=== PATIENT | female | born 1960 | race Caucasian/White ===

== ENCOUNTER 2018-04-07 16:26 | Emergency (ER) | payer OTHER ==
--- NOTE | 2018-04-07 17:44 | EDPHYS ---
Physician Documentation [facility] Name: Sindy Peng Age: 58 yrs Sex: Female : 1960 Arrival Date: 04/07/2018 Time: 16:30 Bed 10 Private MD: Fernando Burks E ED Physician Carlos Sherman HPI: 04/07 17:47 This 58 yrs old Female presents to ER via Wheelchair with complaints of Foot snw Pain. 17:47 The patient presents with decreased range of motion, pain. The complaints affect the snw right ankle and anterior aspect of right ankle. Context: The problem was sustained at an unknown site, resulted from pt states pain became worse when her knee immobilizer was removed, the patient can partially bear weight, uses a walker. 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 Modifying factors: The symptoms are alleviated by nothing. Treatment prior to arrival includes: medications per Surgeon. Severity of symptoms: At their worst the symptoms were moderate, severe. The patient has experienced similar episodes in the past. Saturday, knee ortho. Historical: - Allergies: 16:58 metoclopramide HCl; hb 16:58 erythromycin base; hb 16:58 PENICILLINS; hb - Immunization history:: Adult Immunizations up to date. - Social history:: Smoking status: Patient/guardian denies using tobacco. - Ebola Screening: : No symptoms or risks identified at this time. ROS: 17:47 Constitutional: Negative for fever, chills, and weight loss, Eyes: Negative for injury, snw pain, redness, and discharge, ENT: Negative for injury, pain, and discharge, Neck: Negative for injury, pain, and swelling, Cardiovascular: Negative for chest pain, palpitations, and edema, Respiratory: Negative for shortness of breath, cough, wheezing, and pleuritic chest pain, Abdomen/GI: Negative for abdominal pain, nausea, vomiting, diarrhea, and constipation, Back: Negative for injury and pain, : Negative for injury, bleeding, discharge, and swelling, Skin: Negative for injury, rash, and discoloration, Neuro: Negative for headache, weakness, numbness, tingling, and seizure. 17:47 MS/extremity: Positive for decreased range of motion, pain, swelling, tenderness, of the right ankle. Exam: 17:44 Constitutional: This is a well developed, well nourished patient who is awake, alert, snw and in no acute distress. Head/Face: Normocephalic, atraumatic. Eyes: Pupils equal round and reactive to light, extra-ocular motions intact. Lids and lashes normal. Conjunctiva and sclera are non-icteric and not injected. Cornea within normal limits. Periorbital areas with no swelling, redness, or edema. ENT: Nares patent. No nasal discharge, no septal abnormalities noted. Tympanic membranes are normal and external auditory canals are clear. Oropharynx with no redness, swelling, or masses, exudates, or evidence of obstruction, uvula midline. Mucous membranes moist. Neck: Trachea midline, no thyromegaly or masses palpated, and no cervical lymphadenopathy. Supple, full range of motion without nuchal rigidity, or vertebral point tenderness. No Meningismus. Chest/axilla: Normal chest wall appearance and motion. Nontender with no deformity. No lesions are appreciated. Cardiovascular: Regular rate and rhythm with a normal S1 and S2. No gallops, murmurs, or rubs. Normal PMI, no JVD. No pulse deficits. Respiratory: Lungs have equal breath sounds bilaterally, clear to auscultation and percussion. No rales, rhonchi or wheezes noted. No increased work of breathing, no retractions or nasal flaring. Abdomen/GI: Soft, non-tender, with normal bowel sounds. No distension or tympany. No guarding or rebound. No evidence of tenderness throughout. Back: No spinal tenderness. No costovertebral tenderness. Full range of motion. Skin: Warm, dry with normal turgor. Normal color with no rashes, no lesions, and no evidence of cellulitis. Neuro: Awake and alert, GCS 15, oriented to person, place, time, and situation. Cranial nerves II-XII grossly intact. Motor strength 5/5 in all extremities. Sensory grossly intact. Cerebellar exam normal. Normal gait. Psych: Awake, alert, with orientation to person, place and time. Behavior, mood, and affect are within normal limits. 17:44 Musculoskeletal/extremity: Extremities: right knee replacement recently with sutures still in place, wound well approximated, no erythema. Pt placed on Keflex per Surgeon two days ago. Pt has appt on Saturday with same. Supposed to start PT this week. Evidence of foot drop (right), right ankle edematous, pulses +, sensation intact. Pt states she was x-rayed yest and told she had a foot fx at [facility]. Vital Signs: 16:54 BP 149 / 100; Pulse 84; Resp 18; Temp 98.3; Pulse Ox 100% on R/A; Pain 10/10; hb 17:21 BP 153 / 131; rv 17:26 BP 153 / 74; rv MDM: 17:31 Patient medically screened. snw 17:51 Data reviewed: vital signs, nurses notes. Data interpreted: Pulse oximetry: on room air snw is 100 %. Interpretation: normal. Counseling: I had a detailed discussion with the patient and/or guardian regarding: the historical points, exam findings, and any diagnostic results supporting the discharge/admit diagnosis, the presence of at least one elevated blood pressure reading (>120/80) during this emergency department visit, the need for outpatient follow up, to return to the emergency department if symptoms worsen or persist or if there are any questions or concerns that arise at home. Special discussion: I have referred the patient to see his PCP for further evaluation of high blood pressure. I discussed in detail with the patient the higher chance of wound infection based on his presenting history. Based on the history and exam findings, there is no indication for further emergent testing or inpatient evaluation. I discussed with the patient/guardian the need to see the orthopedic surgeon for further evaluation of the symptoms. ED course: Pt encouraged to f/u as scheduled Saturday. Discussed foot drop. Will medicate for pain and immobilize. Pt to f/u this week with PT.. 04/07 18:47 Order name: Crutches; Complete Time: 18:47 mh5 04/07 18:47 Order name: Crutch Training; Complete Time: 18:47 mh5 04/07 18:47 Order name: Splint - Ankle: Posterior; Complete Time: 18:47 mh5 Administered Medications: 17:54 Drug: fentaNYL (PF) 75 mcg Route: IM; Site: right deltoid; rv 18:59 Follow up: Response: No adverse reaction; Pain is decreased rv Disposition: 04/08 09:34 Co-signature as Attending Physician, Carlos Sherman MD I agree with the assessment and ryland plan of care. Disposition: 04/07/18 17:44 Discharged to Home. Impression: Foot drop, right foot, Pain in right ankle and joints of right foot. - Condition is Stable. - Discharge Instructions: Joint Pain, Musculoskeletal Pain, Cast or Splint Care, [id number], Ankle Pain, Cryotherapy. - Medication Reconciliation Form, Thank You Letter, Antibiotic Education, Prescription Opioid Use form. - Follow up: Emergency Department; When: As needed; Reason: Worsening of condition. Follow up: Jose Elias Pedraza MD; When: Saturday as scheduled. Signatures: Carlos Sherman MD MD cha Therrien, Shelly, PRODUCTION LINE OPERATOR-C PRODUCTION LINE OPERATOR-Csnw Bonita Manning, RN RN Serina Quiles [facility] Feng Null RN RN rv Corrections: (The following items were deleted from the chart) 04/07 18:58 17:42 Misc. Order ordered. snw rv 18:59 17:44 04/07/2018 17:44 Discharged to Home. Impression: Foot drop, right foot; Pain in rv right ankle and joints of right foot. Condition is Stable. Forms are Medication Reconciliation Form, Thank You Letter, Antibiotic Education, Prescription Opioid Use. Follow up: Emergency Department; When: As needed; Reason: Worsening of condition. Follow up: Jose Elias Pedraza; When: Saturday as scheduled. snw
--- NOTE | 2018-04-07 17:44 | ER ---
Nurse's Notes [facility] Name: Sindy Peng Age: 58 yrs Sex: Female : 1960 Arrival Date: 04/07/2018 Time: 16:30 Bed 10 Private MD: Fernando Burks E Diagnosis: Foot drop, right foot;Pain in right ankle and joints of right foot Presentation: 04/07 16:54 Presenting complaint: Patient states: Had right knee replacement 03/24, immobilizer hb removed 04/03. Right foot began hurting immediately after knee immobilizer was removed and pain is getting worse. Reports right foot pain 10/10. Pt was seen at [place] ED for same s/s yesterday, told she has a foot fracture and to follow up with ortho. Transition of care: patient was not received from another setting of care. Onset of symptoms was April 03, 2018. Risk Assessment: Do you want to hurt yourself or someone else? Patient reports no desire to harm self or others. Initial Sepsis Screen: Does the patient meet any 2 criteria? No. Patient's initial sepsis screen is negative. Does the patient have a suspected source of infection? No. Patient's initial sepsis screen is negative. Care prior to arrival: None. 16:54 Method Of Arrival: Wheelchair hb 16:54 Acuity: LYDIA 4 hb Triage Assessment: 17:19 General: Appears in no apparent distress. uncomfortable, Behavior is cooperative, rv crying. Pain: Complains of pain in right leg Pain currently is 10 out of 10 on a pain scale. EENT: No signs and/or symptoms were reported regarding the EENT system. Neuro: Level of Consciousness is awake, alert, obeys commands, Oriented to person, place, time, situation. Cardiovascular: Heart tones S1 S2 present. Respiratory: Airway is patent. GI: No signs and/or symptoms were reported involving the gastrointestinal system. : No signs and/or symptoms were reported regarding the genitourinary system. Derm: Skin POST-OP WOUND ON RIGHT KNEE. Historical: - Allergies: 16:58 metoclopramide HCl; hb 16:58 erythromycin base; hb 16:58 PENICILLINS; hb - Immunization history:: Adult Immunizations up to date. - Social history:: Smoking status: Patient/guardian denies using tobacco. - Ebola Screening: : No symptoms or risks identified at this time. Screenin:18 Abuse screen: Denies threats or abuse. Denies injuries from another. Nutritional rv screening: No deficits noted. Tuberculosis screening: No symptoms or risk factors identified. Fall Risk None identified. Assessment: 17:26 General: Appears in no apparent distress. comfortable, Behavior is calm, cooperative, rv appropriate for age. Pain:. 17:28 Pain: Complains of pain in right leg Pain currently is 10 out of 10 on a pain scale. rv Neuro: Level of Consciousness is awake, alert, obeys commands, Oriented to person, place, time, situation. Cardiovascular: Heart tones S1 S2 present. Respiratory: Airway is patent. GI: No signs and/or symptoms were reported involving the gastrointestinal system. : No signs and/or symptoms were reported regarding the genitourinary system. EENT: No signs and/or symptoms were reported regarding the EENT system. Derm: Skin POST-OP WOUND ON RIGHT KNEE. 18:58 Reassessment: Patient appears in no apparent distress at this time. Patient is alert, rv oriented x 3, equal unlabored respirations, skin warm/dry/pink. PATIENT MORE COMFORTABLE AFTER APPLYING THE SPLINT. Vital Signs: 16:54 BP 149 / 100; Pulse 84; Resp 18; Temp 98.3; Pulse Ox 100% on R/A; Pain 10/10; hb 17:21 BP 153 / 131; rv 17:26 BP 153 / 74; rv ED Course: 16:30 Patient arrived in ED. sb2 16:30 Fernando Burks MD is Private Physician. sb2 16:58 Triage completed. hb 16:58 Arm band placed on right wrist. hb 17:21 Patient has correct armband on for positive identification. Call light in reach. NIBP rv on. 17:30 Sylwia Tobias FNP-C is PHCP. snw 17:30 Carlos Sherman MD is Attending Physician. snw 17:43 Jose Elias Pedraza MD is Referral Physician. snw 18:44 Orthoglass splint: Posterior short lleg splint applied on right leg. mh5 18:47 Crutch training done. mh5 18:58 No provider procedures requiring assistance completed. Patient did not have IV access rv during this emergency room visit. Administered Medications: 17:54 Drug: fentaNYL (PF) 75 mcg Route: IM; Site: right deltoid; rv 18:59 Follow up: Response: No adverse reaction; Pain is decreased rv Outcome: 17:44 Discharge ordered by MD. lazaro 18:59 Discharged to home via wheelchair. rv 18:59 Condition: good 18:59 Discharge instructions given to patient. 18:59 Patient left the ED. rv Signatures: Sylwia Tobias, CARDIAC NURSE SPECIALIST-C CARDIAC NURSE SPECIALIST-Csnw Bonita Manning RN RN Serina Stokes 5 Patti Orozco 2 Feng Null RN RN rv
[2018-04-07] MEDS ORDERED: FENTANYL CITR 100 MCG/2 ML ONE (17:50)
[2018-04-07 20:01] VITALS: TEMP 98.3; O2SAT 100
[2018-04-07 20:03] VITALS: BP 153/74
== END 2018-04-07 18:59 | disposition home or self-care (01) ==
LOC: ER 16:26
DX: M21.371 Foot drop, right foot (principal); M25.571 Pain in right ankle and joints of right foot; Z88.3 Allergy status to other anti-infective agents; Z88.0 Allergy status to penicillin; Z88.8 Allergy status to other drugs, medicaments and biological substances
CPT/HCPCS: 96372; 99283; J3010

== ENCOUNTER 2018-04-21 16:05 | Emergency (ER) | payer OTHER ==
[2018-04-21] MEDS ORDERED: FENTANYL CITR 100 MCG/2 ML ONE (16:40)
--- NOTE | 2018-04-21 17:26 | RAD REPORT ---
EXAM DESCRIPTION: RAD - Foot Right 3 View - 04/21/2018 5:11 pm CLINICAL HISTORY: PAIN COMPARISON: MRI LOWER EXTREMITY W O dated 05/20/2015 FINDINGS: Diffuse osteopenia is seen. Subluxation is noted at the level of the second metatarsal pha langeal joint. Destructive changes are seen involving the proximal aspect of the first metatarsal wit h sclerotic margins. This may be related to chronic osteomyelitis. Mild soft tissue swelling is seen along the dorsum of the forefoot.
--- NOTE | 2018-04-21 17:43 | ER ---
Nurse's Notes [facility] Name: Sindy Peng Age: 58 yrs Sex: Female : 1960 Arrival Date: 04/21/2018 Time: 16:08 Bed 23 Private MD: Fernando Burks E Diagnosis: Foot drop, right foot;Pain in right foot Presentation: 04/21 16:16 Presenting complaint: Patient states: I have been having pain in my right foot since la16 March that is worse at night, I feel like it is swelling from the inside. Transition of care: patient was not received from another setting of care. Onset of symptoms was April 21, 2018. Risk Assessment: Do you want to hurt yourself or someone else? Patient reports no desire to harm self or others. Initial Sepsis Screen: Does the patient meet any 2 criteria? No. Patient's initial sepsis screen is negative. Does the patient have a suspected source of infection? No. Patient's initial sepsis screen is negative. Care prior to arrival: None. 16:16 Method Of Arrival: Wheelchair la1 16:16 Acuity: LYDIA 3 la1 Historical: - Allergies: 16:16 erythromycin base; la1 16:16 metoclopramide HCl; la1 16:16 PENICILLINS; la1 - PMHx: 16:16 mrsa; Hypertension; la1 - PSHx: 16:16 knee sx; la1 - Immunization history:: Adult Immunizations up to date. - Social history:: Smoking status: unknown. - Ebola Screening: : No symptoms or risks identified at this time. Screenin:29 Abuse screen: Denies threats or abuse. Denies injuries from another. Nutritional rv screening: No deficits noted. Tuberculosis screening: No symptoms or risk factors identified. Fall Risk None identified. Assessment: 16:28 General: Appears in no apparent distress. comfortable, Behavior is calm, cooperative, rv crying. Pain: Complains of pain in right leg. Neuro: Level of Consciousness is awake, alert, obeys commands, Oriented to person, place, time, situation. Cardiovascular: Capillary refill < 3 seconds. Respiratory: Airway is patent. GI: No signs and/or symptoms were reported involving the gastrointestinal system. : No signs and/or symptoms were reported regarding the genitourinary system. EENT: No signs and/or symptoms were reported regarding the EENT system. Derm: Skin is intact. Vital Signs: 16:18 Pulse 91; Resp 15; Temp 98.6(TE); Pulse Ox 98% on R/A; Weight 90.72 kg; Height 5 ft. 7 la1 in. (170.18 cm); 16:19 BP 145 / 80; la1 17:23 BP 104 / 69; Pulse 66; Pulse Ox 98% on R/A; rv 16:18 Body Mass Index 31.32 (90.72 kg, 170.18 cm) la1 ED Course: 16:08 Patient arrived in ED. es 16:08 Fernando Burks MD is Private Physician. es 16:17 Triage completed. la1 16:17 Arm band placed on right wrist. la1 16:22 Sylwia Tobias F[facility]-C [facility]. snw 16:22 Erick Mota MD is Attending Physician. snw 16:29 Patient has correct armband on for positive identification. Bed in low position. Call rv light in reach. Side rails up X 1. Adult w/ patient. Pulse ox on. NIBP on. 17:10 Foot Right 3 View XRAY In Process Unspecified. EDMS 17:20 Patient taken to ultrasound. hr 17:42 Fernando Burks MD is Referral Physician. snw 17:43 US Extremity Venous Unilateral Ltd In Process Unspecified. EDMS 18:09 No provider procedures requiring assistance completed. Patient did not have IV access rv during this emergency room visit. Administered Medications: 16:43 Drug: fentaNYL (PF) 50 mcg Route: IM; Site: right deltoid; rv 17:24 Follow up: Response: No adverse reaction; Pain is decreased rv 17:51 Drug: Doxycycline 100 mg Route: PO; rv 17:51 Follow up: Response: Medication administered at discharge. rv Outcome: 17:42 Discharge ordered by . snw 18:09 Discharged to home via wheelchair. rv 18:09 Condition: good 18:09 Condition: improved 18:09 Discharge instructions given to patient, Instructed on discharge instructions, follow up and referral plans. medication usage, Prescriptions given X 2. 18:10 Patient left the ED. rv Signatures: Dispatcher [employer] EDMS Sylwia Tobias FNP-C TIRE MANAGER-Csnw Haydee Rivas Haley hr Attema, Lee RN RN la1 Feng Null, RN RN rv
--- NOTE | 2018-04-21 17:43 | EDPHYS ---
Physician Documentation [facility] Name: Sindy Peng Age: 58 yrs Sex: Female : 1960 Arrival Date: 04/21/2018 Time: 16:08 Bed 23 Private MD: Fernando Burks E ED Physician Erick Mota HPI: 04/21 17:21 This 58 yrs old Female presents to ER via Wheelchair with complaints of Foot snw Pain, Leg Pain. 17:21 The patient presents with pain, that is acute. The complaints affect the anterior snw aspect of right ankle and dorsum of right foot. Context: resulted from a chronic condition, after an old injury, the patient can fully bear weight, the patient is able to ambulate. Onset: The symptoms/episode began/occurred gradually, and became persistent. Associated signs and symptoms: Pertinent positives: swelling. Severity of symptoms: At their worst the symptoms were moderate, severe. The patient has experienced similar episodes in the past, chronically. seen for same at this ED. States she has an appt Thurs and another this month but cannot wait any longer. Historical: - Allergies: 16:16 erythromycin base; la1 16:16 metoclopramide HCl; la1 16:16 PENICILLINS; la1 - PMHx: 16:16 mrsa; Hypertension; la1 - PSHx: 16:16 knee sx; la1 - Immunization history:: Adult Immunizations up to date. - Social history:: Smoking status: unknown. - Ebola Screening: : No symptoms or risks identified at this time. ROS: 17:18 Constitutional: Negative for fever, chills, and weight loss, Eyes: Negative for injury, snw pain, redness, and discharge, ENT: Negative for injury, pain, and discharge, Neck: Negative for injury, pain, and swelling, Cardiovascular: Negative for chest pain, palpitations, and edema, Respiratory: Negative for shortness of breath, cough, wheezing, and pleuritic chest pain, Abdomen/GI: Negative for abdominal pain, nausea, vomiting, diarrhea, and constipation, Back: Negative for injury and pain, : Negative for injury, bleeding, discharge, and swelling, Skin: Negative for injury, rash, and discoloration, Neuro: Negative for headache, weakness, numbness, tingling, and seizure. 17:18 MS/extremity: Positive for pain, of the right foot and ankle. Exam: 17:18 Constitutional: This is a well developed, well nourished patient who is awake, alert, snw and in no acute distress. Head/Face: Normocephalic, atraumatic. Eyes: Pupils equal round and reactive to light, extra-ocular motions intact. Lids and lashes normal. Conjunctiva and sclera are non-icteric and not injected. Cornea within normal limits. Periorbital areas with no swelling, redness, or edema. ENT: Nares patent. No nasal discharge, no septal abnormalities noted. Tympanic membranes are normal and external auditory canals are clear. Oropharynx with no redness, swelling, or masses, exudates, or evidence of obstruction, uvula midline. Mucous membranes moist. Neck: Trachea midline, no thyromegaly or masses palpated, and no cervical lymphadenopathy. Supple, full range of motion without nuchal rigidity, or vertebral point tenderness. No Meningismus. Chest/axilla: Normal chest wall appearance and motion. Nontender with no deformity. No lesions are appreciated. Cardiovascular: Regular rate and rhythm with a normal S1 and S2. No gallops, murmurs, or rubs. Normal PMI, no JVD. No pulse deficits. Respiratory: Lungs have equal breath sounds bilaterally, clear to auscultation and percussion. No rales, rhonchi or wheezes noted. No increased work of breathing, no retractions or nasal flaring. Abdomen/GI: Soft, non-tender, with normal bowel sounds. No distension or tympany. No guarding or rebound. No evidence of tenderness throughout. Back: No spinal tenderness. No costovertebral tenderness. Full range of motion. Skin: Warm, dry with normal turgor. Normal color with no rashes, no lesions, and no evidence of cellulitis. Neuro: Awake and alert, GCS 15, oriented to person, place, time, and situation. Cranial nerves II-XII grossly intact. Motor strength 5/5 in all extremities. Sensory grossly intact. Cerebellar exam normal. Normal gait. Psych: Awake, alert, with orientation to person, place and time. Behavior, mood, and affect are within normal limits. 17:18 Musculoskeletal/extremity: Extremities: all appear grossly normal, with no appreciated pain with palpation, ROM: chronic right foot drop, Circulation is intact in all extremities. Severe pain noted. Compartment Syndrome exam of affected extremity: is normal. Weight bearing: able to fully bear weight, without difficulty. Vital Signs: 16:18 Pulse 91; Resp 15; Temp 98.6(TE); Pulse Ox 98% on R/A; Weight 90.72 kg; Height 5 ft. 7 la1 in. (170.18 cm); 16:19 BP 145 / 80; la1 17:23 BP 104 / 69; Pulse 66; Pulse Ox 98% on R/A; rv 16:18 Body Mass Index 31.32 (90.72 kg, 170.18 cm) la1 MDM: 16:24 Patient medically screened. snw 17:44 Data reviewed: vital signs, nurses notes. Data interpreted: Pulse oximetry: on room air snw is 98 %. Interpretation: normal. Counseling: I had a detailed discussion with the patient and/or guardian regarding: the historical points, exam findings, and any diagnostic results supporting the discharge/admit diagnosis, radiology results, the need for outpatient follow up, to return to the emergency department if symptoms worsen or persist or if there are any questions or concerns that arise at home. Special discussion: Based on the history and exam findings, there is no indication for further emergent testing or inpatient evaluation. I discussed with the patient/guardian the need to see the footwear factory worker for further evaluation of the symptoms. I discussed with the patient/guardian the need to see the primary care provider for further evaluation of the symptoms. 04/21 16:24 Order name: Foot Right 3 View XRAY; Complete Time: 17:40 snw 04/21 16:24 Order name: US Extremity Venous Unilateral Ltd; Complete Time: 18:00 snw 04/21 17:44 Order name: Walking boot; Complete Time: 18:09 snw Administered Medications: 16:43 Drug: fentaNYL (PF) 50 mcg Route: IM; Site: right deltoid; rv 17:24 Follow up: Response: No adverse reaction; Pain is decreased rv 17:51 Drug: Doxycycline 100 mg Route: PO; rv 17:51 Follow up: Response: Medication administered at discharge. rv Disposition: 18:31 Co-signature as Attending Physician, Erick Mota MD I agree with the assessment and kdr plan of care. Disposition: 04/21/18 17:42 Discharged to Home. Impression: Foot drop, right foot, Pain in right foot. - Condition is Stable. - Discharge Instructions: Cast or Splint Care, Adult, Musculoskeletal Pain. - Prescriptions for Doxycycline Hyclate 100 mg Oral Tablet - take 1 tablet by ORAL route every 12 hours; 20 tablet. Diclofenac Sodium 75 mg Oral Tablet Sustained Release - take 1 tablet by ORAL route 2 times per day; 30 tablet. - Medication Reconciliation Form, Thank You Letter, Antibiotic Education, Prescription Opioid Use form. - Follow up: Fernando Burks MD; When: as scheduled ; Reason: Recheck today's complaints, Continuance of care, Re-evaluation by your physician. Signatures: Dispatcher [employer] EDMS Erick Mota MD MD kdr Therrien, Shelly, REZA-C WATER MAIN INSTALLER HELPER-Bridgettw Aly Rubio RN RN la1 Feng Null RN RN rv Corrections: (The following items were deleted from the chart) 18:10 17:42 04/21/2018 17:42 Discharged to Home. Impression: Foot drop, right foot; Pain in rv right foot. Condition is Stable. Forms are Medication Reconciliation Form, Thank You Letter, Antibiotic Education, Prescription Opioid Use. Follow up: Fernando Burks; When: as scheduled ; Reason: Recheck today's complaints, Continuance of care, Re-evaluation by your physician. snw
[2018-04-21] MEDS ORDERED: DOXYCYCLINE 100 MG CAP PO ONE (17:54)
--- NOTE | 2018-04-21 17:54 | RAD REPORT ---
EXAM DESCRIPTION: VAS - Extremity Venous Uni Ltd - 04/21/2018 5:43 pm CLINICAL HISTORY: Foot pain, leg pain and swelling COMPARISON: None. TECHNIQUE: Real-time sonographic evaluation of the right lower extremity deep venous systems was per formed. FINDINGS: Normal compressibility, flow augmentation, phasic flow and spontaneous flow are identified in the right lower extremity common femoral, superficial femoral, popliteal and posterior tibial vei ns. No intraluminal filling defects seen. IMPRESSION: No DVT in the right lower extremity.
[2018-04-21 18:21] VITALS: TEMP 98.6; O2SAT 98
[2018-04-21 18:22] VITALS: BP 104/69
== END 2018-04-21 18:10 | disposition home or self-care (01) ==
LOC: ER 16:05
DX: M21.371 Foot drop, right foot (principal); I10 Essential (primary) hypertension; Z88.1 Allergy status to other antibiotic agents; Z88.0 Allergy status to penicillin; Z88.8 Allergy status to other drugs, medicaments and biological substances
CPT/HCPCS: 93971; 96372; 99284; J3010

== ENCOUNTER 2018-08-24 05:58 | Emergency (ER) | payer OTHER ==
[2018-08-24] MEDS ORDERED: cloNIDine HCl 0.1 MG TAB ONE (06:42)
[2018-08-24] MEDS ORDERED: PROMETHAZINE 25 MG/ML VIAL ONE (06:42)
[2018-08-24] MEDS ORDERED: NA CHLORIDE 0.9% 1,000 ML ONE (06:43)
[2018-08-24] MEDS ORDERED: FENTANYL CITR 100 MCG/2 ML ONE ×2 (06:43→09:12)
[2018-08-24 07:13] LABS: Absolute Lymphocytes (CBC) 2.9 K/uL (0.7-4.9); Absolute Monocytes 1.4 K/uL (0.1-1.3); Absolute Neutrophil 9.5 K/uL (1.8-8.0); Basophils % 0.7 % (0-1.3); Eosinophils % 1.3 % (0-4.4); Hematocrit 45.4 % (36.0-45.0); Lymphocytes % 20.7 % (15.3-44.8); MCH 30.4 pg (27.0-35.0); MCV 89.8 fL (80-100); MPV 8.9 fL (7.6-11.3); Monocytes % 9.9 % (3.3-12.3); RBC Red Blood Cell Count 5.05 M/uL (3.86-4.86)
--- NOTE | 2018-08-24 07:59 | RAD REPORT ---
EXAM DESCRIPTION: CT - Stone Protocol - 08/24/2018 7:05 am CLINICAL HISTORY: Flank pain. ABD PAIN COMPARISON: CT ABDOMEN PELVIS WO CONTRAST dated 05/11/2015; CT CHEST ABD PELVIS W CONTRAST dated 08/16 TECHNIQUE: Axial images were obtained without oral or IV contrast. Lack of contrast limits solid org an and vascular assessment. The [id number] spans the entirety of the system partially obscuring uppermost abdomen and lung bases. Coronal reformatted images were obtained and reviewed. All CT scans are performed using dose optimization technique as appropriate and may include automated exposure control or mA/KV adjustment according to patient size. FINDINGS: The lower lung heart are clear. Imaged portions of the liver and spleen show no suspicious findings on non-contrast imaging. The panc reas and adrenal glands are normal. No pathologic lymphadenopathy in the abdomen or pelvis. No urinary tract stones or obstructive uropathy. Prominent retroperitoneal soft tissue inflammatory stranding is present with a few enlarged aortocava l lymph nodes identified, the largest measuring 19 mm. An IVC filter is in place. No bowel obstruction, free air, free fluid or abscess. The appendix is not identified as a discrete s tructure, however, no secondary findings of appendicitis are identified. Moderate lower lumbar degenerative changes. IMPRESSION: Prominent retroperitoneal/para-aortic inflammatory soft tissue stranding is present with prominent aortocaval lymph nodes present. Etiology for this finding is not definitive, however it ma y be related to the adjacent IVC filter. Other, less likely possibilities would include developing retroperitoneal fibrosis or lymphoma.
[2018-08-24 09:47] LABS: Urine Bacteria <20 /HPF (<20); Urine Culture Reflex Order NOT NEEDED; Urine RBC <5 /HPF (NONE SEEN)
[2018-08-24 09:48] LABS: Albumin 3.1 g/dL (3.4-5.0); Bilirubin Direct 0.1 mg/dL (0-0.2); Bilirubin Total 0.4 mg/dL (0.2-1.0); Potassium 5.3 mmol/L (3.5-5.1); Protein, Total 6.5 g/dL (6.4-8.2)
[2018-08-24] MEDS ORDERED: ALBUTEROL 2.5 MG/3 ML NEB SOL ONE (10:19)
--- NOTE | 2018-08-24 10:48 | ER ---
Nurse's Notes [facility] Name: Sindy Peng Age: 58 yrs Sex: Female : 1960 Arrival Date: 08/24/2018 Time: 06:00 Bed 19 Private MD: Diagnosis: Lower abdominal pain, unspecified Presentation: 08/24 06:09 Presenting complaint: Patient states: R low back pain that radiates to RLQ w/nausea aa1 since last night. Transition of care: patient was not received from another setting of care. Onset of symptoms was August 23, 2018. Risk Assessment: Do you want to hurt yourself or someone else? Patient reports no desire to harm self or others. Initial Sepsis Screen: Does the patient meet any 2 criteria? No. Patient's initial sepsis screen is negative. Does the patient have a suspected source of infection? No. Patient's initial sepsis screen is negative. Care prior to arrival: None. 06:09 Method Of Arrival: Ambulatory aa1 06:09 Acuity: LYDIA 3 aa1 Triage Assessment: 06:16 General: Appears in no apparent distress. uncomfortable, Behavior is calm, cooperative, aa1 appropriate for age. Historical: - Allergies: 06:16 erythromycin base; aa1 06:16 metoclopramide HCl; aa1 06:16 PENICILLINS; aa1 - Home Meds: 06:16 losartan oral oral [Active]; Trazodone Oral [Active]; Tramadol Oral [Active]; Ativan aa1 Oral [Active]; - PMHx: 06:16 Hypertension; MRSA; Anxiety; Arthritis; IVC filter; aa1 - PSHx: 06:16 knee sx; aa1 - Immunization history:: Flu vaccine is not up to date. - Social history:: Smoking status: Patient/guardian denies using tobacco. - Ebola Screening: : Patient denies exposure to infectious person Patient denies travel to an Ebola-affected area in the 21 days before illness onset. Screenin:14 Abuse screen: Denies threats or abuse. Nutritional screening: No deficits noted. jd3 Tuberculosis screening: No symptoms or risk factors identified. Fall Risk Ambulatory Aid- Crutches/Cane/Walker (15 pts). Gait- Weak (10 pts.). Mental Status- Oriented to own ability (0 pts). Total Prado Fall Scale indicates Low Risk Score (25-44 pts). Fall prevention measures have been instituted. Side Rails Up X 2 Placed close to Nursing Station Frequent Obs/Assesments occuring Family Present and informed to notify staff if they need to leave bedside. Assessment: 06:12 General: Appears in no apparent distress. uncomfortable, Behavior is cooperative, jd3 appropriate for age, anxious. Pain: Complains of pain in back Pain radiates to posterior aspect of right lateral abdomen and anterior aspect of right lateral abdomen Pain currently is 10 out of 10 on a pain scale. Quality of pain is described as sharp. Neuro: Level of Consciousness is awake, alert, obeys commands, Oriented to person, place, time, situation, Appropriate for age. Cardiovascular: Capillary refill < 3 seconds Patient's skin is warm and dry. Respiratory: Airway is patent Respiratory effort is even, unlabored, Respiratory pattern is regular, symmetrical. GI: Abdomen is round non-distended, Bowel sounds present X 4 quads. Abd is soft and non tender X 4 quads. Reports nausea, Patient currently denies diarrhea, nausea. : Reports urinary frequency. EENT: No signs and/or symptoms were reported regarding the EENT system. Derm: Skin is intact, Skin is dry, Skin is normal, Skin temperature is warm. Musculoskeletal: Circulation, motion, and sensation intact. Range of motion: intact in left knee and right knee. 06:49 Reassessment: IV initiated with good flush, but no blood return. phlebotomy paged for jd3 blood draw. 07:30 Reassessment: Patient appears in no apparent distress at this time. Patient and/or em family updated on plan of care and expected duration. Pain level reassessed. Patient is alert, oriented x 3, equal unlabored respirations, skin warm/dry/pink. rates pain 3/10 Patient states feeling better. Patient states symptoms have improved. 08:30 Reassessment: Patient appears in no apparent distress at this time. Patient and/or em family updated on plan of care and expected duration. Pain level reassessed. Patient is alert, oriented x 3, equal unlabored respirations, skin warm/dry/pink. 10:30 Reassessment: reports pain in side and legs, provider notified, new medication orders em received. 11:25 Reassessment: Patient appears in no apparent distress at this time. Patient and/or em family updated on plan of care and expected duration. Pain level reassessed. Patient is alert, oriented x 3, equal unlabored respirations, skin warm/dry/pink. 11:37 Reassessment: report given to SHAWN Belcher at [facility], pending transportation. em 12:27 Reassessment: Patient appears in no apparent distress at this time. Patient and/or em family updated on plan of care and expected duration. Pain level reassessed. Patient is alert, oriented x 3, equal unlabored respirations, skin warm/dry/pink. Patient states feeling better. Patient states symptoms have improved. 12:29 Reassessment: report given to EMS. em Vital Signs: 06:16 BP 172 / 107; Pulse 87; Resp 18; Temp 97.6; Pulse Ox 98% on R/A; Weight 90.72 kg; aa1 Height 5 ft. 7 in. (170.18 cm); Pain 10/10; 07:40 BP 114 / 70; Pulse 70; Resp 16; Pulse Ox 100% on R/A; Pain 3/10; em 08:34 BP 122 / 70; Pulse 81; Resp 16; Pulse Ox 99% on R/A; em 09:10 BP 106 / 67; Pulse 58; Resp 16; Temp 97.8(O); Pulse Ox 99% on R/A; em 10:00 BP 116 / 65; Pulse 62; Resp 16; Pulse Ox 99% on R/A; em 11:37 BP 119 / 79; Pulse 76; Resp 16; Pulse Ox 99% ; Pain 3/10; em 12:31 BP 134 / 89; Pulse 73; Resp 16; Pulse Ox 99% on R/A; Pain 3/10; em 06:16 Body Mass Index 31.32 (90.72 kg, 170.18 cm) aa1 ED Course: 06:00 Patient arrived in ED. ds1 06:03 Ermias Luong, SHAWN is Primary Nurse. jd3 06:10 Triage completed. aa1 06:15 Patient has correct armband on for positive identification. Bed in low position. Call jd3 light in reach. Side rails up X 1. Adult w/ patient. 06:16 Sylwia Tobias [facility]C [facility]. snw 06:16 Carlos Sherman MD is Attending Physician. snw 06:46 Arm band placed on. jd3 06:46 Inserted saline lock: 20 gauge in right forearm, using aseptic technique. Blood jd3 collected. 07:[address] via stretcher. kw1 07:05 CT Stone Protocol In Process Unspecified. EDMS 12:26 No provider procedures requiring assistance completed. Patient transferred, IV remains em in place. Administered Medications: 06:45 Drug: NS 0.9% 1000 ml Route: IV; Rate: 125 ml/hr; Site: right forearm; jd3 06:45 Drug: Phenergan 6.25 mg Route: IVP; Site: right forearm; jd3 07:11 Follow up: Response: No adverse reaction; Nausea is decreased em 06:45 Drug: cloNIDine 0.1 mg Route: PO; jd3 08:06 Follow up: Response: No adverse reaction; Blood pressure is lowered em 06:46 Drug: fentaNYL (PF) 25 mcg Route: IVP; Site: right forearm; jd3 07:11 Follow up: Response: No adverse reaction; Pain is decreased em 07:28 Drug: NS 0.9% 500 ml Route: IV; Rate: bolus; Site: right forearm; em 08:32 Follow up: IV Status: Completed infusion; IV Intake: 500ml em 09:08 Drug: fentaNYL (PF) 25 mcg Route: IVP; Site: right forearm; em 10:33 Follow up: Response: No adverse reaction; Pain is decreased em 10:34 Drug: Albuterol 2.5 mg Route: Inhalation; em 10:34 Drug: Albuterol 2.5 mg Route: Inhalation; em 10:34 Drug: Albuterol 2.5 mg Route: Inhalation; em 10:34 Drug: fentaNYL (PF) 25 mcg Route: IVP; Site: right antecubital; em 11:34 Follow up: Response: No adverse reaction; Pain is decreased em Intake: 08:32 IV: 500ml; Total: 500ml. em Outcome: 10:47 ER care complete, transfer ordered by . snw 12:26 Transferred by ground EMS to [facility], Transfer form em completed. X-rays sent w/ patient. 12:26 Condition: good 12:26 Instructed on the need for transfer, Demonstrated understanding of instructions. 12:32 Patient left the ED. em Signatures: [facility] Elba Tran RN RN aa1 Sylwia Tobias, REGULATORY ASSISTANT-C REGULATORY ASSISTANT-Csnw Cassius Li, TURN OPERATOR TURN OPERATOR Sushma Aceves ds1 Ermias Luong, RN RN jd3 Etelvina Garcia kw1
--- NOTE | 2018-08-24 10:48 | EDPHYS ---
Physician Documentation [facility] Name: Sindy Peng Age: 58 yrs Sex: Female : 1960 Arrival Date: 08/24/2018 Time: 06:00 Bed 19 Private MD: ED Physician Carlos Sherman HPI: 08/24 06:26 This 58 yrs old Female presents to ER via Ambulatory with complaints of Back snw Pain, Nausea. 06:26 The patient presents with abdominal pain right lower quadrant. Onset: The snw symptoms/episode began/occurred suddenly, yesterday, and became worse today. The symptoms radiate to back. Associated signs and symptoms: Pertinent positives: nausea, Pertinent negatives: dysuria, fever, vomiting. The symptoms are described as steady. Severity of pain: At its worst the pain was severe. The patient has experienced a previous episode, many years ago. It is unknown whether or not the patient has recently seen a physician. Historical: - Allergies: 06:16 erythromycin base; aa1 06:16 metoclopramide HCl; aa1 06:16 PENICILLINS; aa1 - Home Meds: 06:16 losartan oral oral [Active]; Trazodone Oral [Active]; Tramadol Oral [Active]; Ativan aa1 Oral [Active]; - PMHx: 06:16 Hypertension; MRSA; Anxiety; Arthritis; IVC filter; aa1 - PSHx: 06:16 knee sx; aa1 - Immunization history:: Flu vaccine is not up to date. - Social history:: Smoking status: Patient/guardian denies using tobacco. - Ebola Screening: : Patient denies exposure to infectious person Patient denies travel to an Ebola-affected area in the 21 days before illness onset. ROS: 06:25 Constitutional: Negative for fever, chills, and weight loss, Eyes: Negative for injury, snw pain, redness, and discharge, ENT: Negative for injury, pain, and discharge, Neck: Negative for injury, pain, and swelling, Cardiovascular: Negative for chest pain, palpitations, and edema, Respiratory: Negative for shortness of breath, cough, wheezing, and pleuritic chest pain, : Negative for injury, bleeding, discharge, and swelling, MS/Extremity: Negative for injury and deformity, Skin: Negative for injury, rash, and discoloration, Neuro: Negative for headache, weakness, numbness, tingling, and seizure. 06:25 Abdomen/GI: Positive for abdominal pain, nausea, of the right lower quadrant. 06:25 Back: Positive for pain at rest, of the low back area. Exam: 06:25 Head/Face: Normocephalic, atraumatic. Eyes: Pupils equal round and reactive to light, snw extra-ocular motions intact. Lids and lashes normal. Conjunctiva and sclera are non-icteric and not injected. Cornea within normal limits. Periorbital areas with no swelling, redness, or edema. ENT: Nares patent. No nasal discharge, no septal abnormalities noted. Tympanic membranes are normal and external auditory canals are clear. Oropharynx with no redness, swelling, or masses, exudates, or evidence of obstruction, uvula midline. Mucous membranes moist. Neck: Trachea midline, no thyromegaly or masses palpated, and no cervical lymphadenopathy. Supple, full range of motion without nuchal rigidity, or vertebral point tenderness. No Meningismus. Chest/axilla: Normal chest wall appearance and motion. Nontender with no deformity. No lesions are appreciated. Cardiovascular: Regular rate and rhythm with a normal S1 and S2. No gallops, murmurs, or rubs. Normal PMI, no JVD. No pulse deficits. Respiratory: Lungs have equal breath sounds bilaterally, clear to auscultation and percussion. No rales, rhonchi or wheezes noted. No increased work of breathing, no retractions or nasal flaring. Back: No spinal tenderness. No costovertebral tenderness. Full range of motion. Skin: Warm, dry with normal turgor. Normal color with no rashes, no lesions, and no evidence of cellulitis. MS/ Extremity: Pulses equal, no cyanosis. Neurovascular intact. Full, normal range of motion. Neuro: Awake and alert, GCS 15, oriented to person, place, time, and situation. Cranial nerves II-XII grossly intact. Motor strength 5/5 in all extremities. Sensory grossly intact. Cerebellar exam normal. Normal gait. 06:25 Constitutional: The patient appears alert, anxious, obese. 06:25 Abdomen/GI: Inspection: obese Bowel sounds: normal, in all quadrants, Palpation: mild abdominal tenderness, in the right lower quadrant. Vital Signs: 06:16 BP 172 / 107; Pulse 87; Resp 18; Temp 97.6; Pulse Ox 98% on R/A; Weight 90.72 kg; aa1 Height 5 ft. 7 in. (170.18 cm); Pain 10/10; 07:40 BP 114 / 70; Pulse 70; Resp 16; Pulse Ox 100% on R/A; Pain 3/10; em 08:34 BP 122 / 70; Pulse 81; Resp 16; Pulse Ox 99% on R/A; em 09:10 BP 106 / 67; Pulse 58; Resp 16; Temp 97.8(O); Pulse Ox 99% on R/A; em 10:00 BP 116 / 65; Pulse 62; Resp 16; Pulse Ox 99% on R/A; em 11:37 BP 119 / 79; Pulse 76; Resp 16; Pulse Ox 99% ; Pain 3/10; em 12:31 BP 134 / 89; Pulse 73; Resp 16; Pulse Ox 99% on R/A; Pain 3/10; em 06:16 Body Mass Index 31.32 (90.72 kg, 170.18 cm) aa1 MDM: 06:16 Patient medically screened. snw 10:42 Data reviewed: vital signs, nurses notes. Data interpreted: Pulse oximetry: on room air snw is 99 %. Interpretation: normal. Counseling: I had a detailed discussion with the patient and/or guardian regarding: the historical points, exam findings, and any diagnostic results supporting the discharge/admit diagnosis, lab results, radiology results, the need to transfer to another facility, for higher level of care, [facility] does not immediately have the required specialist. Physician consultation: Dr. Rosas was called at 10:30, was contacted at 10:34, regarding regarding transfer, patient's condition, Suggests transfer to medicine service at [facility]. Dr. Menendez contacted and Kindly accepts pt in transfer to [facility] internal medicine. 10:42 Physician consultation: Dr. Menendez was called at 10:38, was contacted at 10:38, snw regarding regarding transfer, to [facility]. 08/24 06:18 Order name: Basic Metabolic Panel; Complete Time: 10:07 snw 08/24 06:18 Order name: CBC with Diff; Complete Time: 07:22 snw 08/24 06:18 Order name: Creatinine for Radiology; Complete Time: 08:59 snw 08/24 06:18 Order name: Hepatic Function; Complete Time: 10:07 snw 08/24 06:18 Order name: Lipase; Complete Time: 10:07 snw 08/24 06:24 Order name: Blood Culture Adult (2) snw 08/24 06:24 Order name: CT Stone Protocol; Complete Time: 08:17 snw 08/24 08:37 Order name: Urine Culture snw 08/24 08:37 Order name: Urine Microscopic Only; Complete Time: 10:07 snw 08/24 09:32 Order name: Urine Dipstick--Ancillary (enter results); Complete Time: 11:24 bd 08/24 06:18 Order name: IV Saline Lock; Complete Time: 06:46 snw 08/24 06:18 Order name: Labs collected and sent; Complete Time: 08:33 snw 08/24 08:37 Order name: Cath; Complete Time: 08:58 snw 08/24 10:15 Order name: NPO; Complete Time: 10:33 snw Administered Medications: 06:45 Drug: NS 0.9% 1000 ml Route: IV; Rate: 125 ml/hr; Site: right forearm; jd3 06:45 Drug: Phenergan 6.25 mg Route: IVP; Site: right forearm; jd3 07:11 Follow up: Response: No adverse reaction; Nausea is decreased em 06:45 Drug: cloNIDine 0.1 mg Route: PO; jd3 08:06 Follow up: Response: No adverse reaction; Blood pressure is lowered em 06:46 Drug: fentaNYL (PF) 25 mcg Route: IVP; Site: right forearm; jd3 07:11 Follow up: Response: No adverse reaction; Pain is decreased em 07:28 Drug: NS 0.9% 500 ml Route: IV; Rate: bolus; Site: right forearm; em 08:32 Follow up: IV Status: Completed infusion; IV Intake: 500ml em 09:08 Drug: fentaNYL (PF) 25 mcg Route: IVP; Site: right forearm; em 10:33 Follow up: Response: No adverse reaction; Pain is decreased em 10:34 Drug: Albuterol 2.5 mg Route: Inhalation; em 10:34 Drug: Albuterol 2.5 mg Route: Inhalation; em 10:34 Drug: Albuterol 2.5 mg Route: Inhalation; em 10:34 Drug: fentaNYL (PF) 25 mcg Route: IVP; Site: right antecubital; em 11:34 Follow up: Response: No adverse reaction; Pain is decreased em Disposition: 08/25 06:33 Co-signature as Attending Physician, Carlos Sherman MD I agree with the assessment and ryland plan of care. Disposition: 08/24/18 10:47 Transfer ordered to [facility]. Diagnosis is Lower abdominal pain, unspecified. - Reason for transfer: Higher level of care. - Accepting physician is Dr. Menendez. - Condition is Stable. - Problem is new. - Symptoms are unchanged. Signatures: Dispatcher [employer] EDWA Elba Tran, RN RN aa1 Carlos Sherman MD MD cha Therrien, Shelly, INVESTMENT SALES ASSISTANT-C INVESTMENT SALES ASSISTANT-Csnw Cassius Li, ASSOCIATE SOFTWARE DEVELOPER ASSOCIATE SOFTWARE DEVELOPER Ermias Adames, RN RN jd3 Corrections: (The following items were deleted from the chart) 08/24 06:25 06:18 Abdomen Pelvis W Con+CT.RAD.BRZ ordered. [facility] EDWA 12:32 10:47 08/24/2018 10:47 Transfer ordered to [facility]. Diagnosis is Lower abdominal em pain, unspecified. Reason for transfer: Higher level of care. Accepting physician is Dr. Menendez. Condition is Stable. Problem is new. Symptoms are unchanged. snw
[2018-08-24 11:23] LABS: Urine Blood NEGATIVE (NEG); Urine Glucose NEGATIVE (NEG); Urine Protein NEGATIVE (NEG); Urine Specific Gravity >1.030 (1.005-1.030); Urine pH 5.5 (5.0-7.0)
[2018-08-24 12:39] VITALS: O2SAT 99
[2018-08-24 12:41] VITALS: TEMP 97.8
[2018-08-24 12:45] VITALS: BP 134/89
== END 2018-08-24 12:32 | disposition short-term general hospital (02) ==
LOC: ER 05:58
DX: R10.31 Right lower quadrant pain (principal); I10 Essential (primary) hypertension; F41.9 Anxiety disorder, unspecified; Z88.0 Allergy status to penicillin; Z88.3 Allergy status to other anti-infective agents; Z88.8 Allergy status to other drugs, medicaments and biological substances
CPT/HCPCS: 36415; 74176; 76377; 80048; 80076; 81003; 81015; 83690; 85025; 87040; 87086; 87088; 99285; J2550; J3010; J7030

== ENCOUNTER 2025-06-21 17:16 | Inpatient (IN) | payer OTHER ==
--- OUTSIDE RECORDS SUMMARY | 2025-06-21 17:20 | XMS REPORT | Continuity of Care Document ---
Author Name Unknown Address [address] [place] [address] Organization [facility] Address [address] [place] [address] Care Team Providers Care Dot Compliance Manager Name Role Phone Unknown, Attending Primary Care Physician Merari labmary 0 Attending Clinician Unavailable Jose Elias Harrison MD Attending Clinician [phone] JOSE ELIAS HARRISON Attending Clinician Unavailsong e JOSE ELIAS HARRISON Attending Clinician Unavailsong e Payers Payer Name Policy Type Policy Number Effective Date Expirati on Date Source [employer] [id number] 2025 00:00:00 1 Medicare Primary [id number] OTHER [id number] Problems Condition Name Condition Details Condition Category Status Onset Date Resolution Date Last Treatment Date Treating Clinician Comments Source Acute right flank pain Acute right flank pain Disease Active 2017-09 00:00: 00 [facility] Obesity (BMI 30-39.9) Obesity (BMI 30-39.9) Disease Active 03-25 00:00: 00 [facility] Status post total knee replacemen t, right Status post total knee replacemen t, right Disease Active 03-24 00:00: 00 [facility] Knee pain Knee pain Disease Active 11-08 00:00: 00 [facility] Pleural effusion Pleural effusion Disease Active 1-04 00:00: 00 [facility] DVT (deep venous thrombosis ), bilateral DVT (deep venous thrombosis ), bilateral Disease Active 2014-09 2-14 00:00: 00 [facility] Sepsis Sepsis Disease Active 2014-09 2-11 00:00: 00 [facility] Allergies, Adverse Reactions, Alerts Allergy Name Allergy Type Status Severity Reaction(s) Onset Date Inactive Date Treating Clinician Comments Source ERYTHROM YCIN DRUG Active ITCHING 05-02 00:00: 00 [facility] PENICILL INS Drug Class Active Rash 05-02 00:00: 00 [facility] METOCLOP RAMIDE HCL DRUG INGREDI Active Swelling 05-02 00:00: 00 [facility] Erythrom ycin Propensi ty to adverse reaction s Active Itching 05-02 00:00: 00 [facility] Penicill ins Propensi ty to adverse reaction s Active Rash 05-02 00:00: 00 [facility] Metoclop ramide Hcl Propensi ty to adverse reaction s Active Swelling 05-02 00:00: 00 [facility] Social History Social Habit Start Date Stop Date Quantity Comments Source History of tobacco use Cigarette Smoker [facility] ASSERTION Possible [facility] of Social function 2019-06-09 00:00:00 2019-06-09 00:00:00 [facility] Cigarettes smoked current (pack per day) - Reported 2018-08-24 00:00:00 2018-08-24 00:00:00 [facility] Cigarette pack-years 2018-08-24 00:00:00 2018-08-24 00:00:00 [facility] Tobacco use and exposure 2018-08-24 00:00:00 2018-08-24 00:00:00 Smokeless tobacco non-user [facility] Alcoholic beverage intake 2018-08-24 00:00:00 2018-08-24 00:00:00 .43 /d [facility] Sex assigned at 1960 00:00:00 1960 00:00:00 [facility] Smoking Status Start Date Stop Date Source Never smoked tobacco [facility] Medications Ordered Medication Name Filled Medication Name Start Date Stop Date Current Medication? Ordering Clinician Indication Dosage Frequency Signature (SIG) Comments Components Source losartan 50 mg tablet 2017-09 16:22: 31 Yes 50mg Take 50 mg by mouth daily. [facility] traMADOL 50 mg tablet 04-06 00:00: 00 Yes 50mg Take 1 tablet by mouth every 6 (six) hours as needed for Pain (scale 7-10). [facility] pantoprazol e 40 mg EC tablet 03-27 00:00: 00 Yes 40mg Take 1 tablet by mouth daily. [facility] Encounters Start Date/Time End Date/Time Encounter Type Admission Type Attending Clinicians Care Facility Care Department Encounter ID Source 2025-06-25 13:45:00 2025-06-25 13:45:00 [facility] 0 [id number] 2025-06-17 00:00:00 2025-06-17 15:44:00 Telephone Jose Elias [facility] [id number] [facility] 2025-06-17 15:00:00 2025-06-17 15:00:00 Outpatient R JOSE ELIAS HARRISON [facility] [id number] [facility] 2025-06-17 10:36:18 2025-06-17 10:36:18 Outpatient 0 [facility] [id number] 2025-06-16 00:00:00 2025-06-16 16:45:06 Telephone Jose Elias Harrison [facility] [id number] [facility] Notes Date/Time Note Provider Source 2025-06-17 15:24:38 Patient r/s appt can encounter be closed. Dora Rosenbaum [facility] 2025-06-17 12:14:26 Insurance updated, will contact patient to patient about her co-pay but also she is missing a referral due to being an HMO plan [facility] 2025-06-17 11:31:52 Copied from [facility] #[id number]. Topic: Clinical - Medical Advice >> Jun 17, 2025 11:29 AM Patient Entertainment Production Professional wrote: Patient has appointment today 06/17/25 and called with new insurance information. Want to know what her copay would be? Antoinette Connor [facility] 2025-06-16 16:43:14 Xray order placed T [facility]
[2025-06-21] MEDS ORDERED: ONDANSETRON 4 MG/2 ML VIAL ONE ×2 (18:28→22:25)
[2025-06-21] MEDS ORDERED: HYDROMORPHONE HCL 2 MG/ML inj ONE (18:28)
--- NOTE | 2025-06-21 19:06 | RAD REPORT ---
EXAM: Knee Left 3 View INDICATION: PAIN COMPARISON: None FINDINGS: No acute fracture. No significant knee effusion. Advanced lateral compartment degenerative changes with [id number] contact, large marginal osteophyt es, and subchondral sclerosis. The medial compartment is probably moderately narrowed. Moderate patellofemoral compartment spurring. Other: N/A IMPRESSION: No acute osseous abnormality involving the imaged knee.
[2025-06-21] MEDS ORDERED: ETOMIDATE 20 MG/10 ML VIAL IV ONE (19:50)
[2025-06-21] MEDS ORDERED: MIDAZOLAM HCL 0 ML ONE (19:50)
[2025-06-21] MEDS ORDERED: NA CHLORIDE 0.9% 1,000 ML ONE ×2 (19:50→23:33)
[2025-06-21] MEDS ORDERED: ASPIRIN 81 MG CHEWABLE TABLET ONE (21:26)
--- NOTE | 2025-06-21 21:40 | RAD REPORT ---
EXAM: Knee Left 2 View INDICATION: after reduction COMPARISON: 4 hours prior IMPRESSION: Postreduction radiographs. The alignment of the knee appear similar. No fracture identifi ed.
--- NOTE | 2025-06-21 21:58 | RAD REPORT ---
EXAM: Lower Extremity Artery Uni Ltd HISTORY: leg pain COMPARISON: None TECHNIQUE: Multiplanar grayscale and color Doppler images were obtained and a left lower extremity ar terial ultrasound. Spectral analysis of the Doppler waveforms were performed. FINDINGS: Left lower extremity: Common femoral artery: Triphasic Superficial femoral artery: Triphasic Popliteal artery: Triphasic Posterior tibial artery: Triphasic Dorsalis pedis artery: Triphasic IMPRESSION: No significant arterial abnormality of the left lower extremity.
[2025-06-21] MEDS ORDERED: KETOROLAC 30 MG/ML INJ ONE (22:25)
[2025-06-21] MEDS ORDERED: MORPHINE 4 MG/ML SYR ONE (22:26)
--- NOTE | 2025-06-21 22:31 | RAD REPORT ---
EXAM: Chest Single View HISTORY: 65 years Female CHEST PAIN COMPARISON: 08/25/2015 FINDINGS: LUNGS/PLEURA: Linear opacities in lung bases may reflect combination of scarring and subsegmental ate lectasis. CARDIAC/MEDIASTINUM: The pulmonary arteries appear enlarged. This could indicate pulmonary artery hyp ertension. Borderline cardiomegaly. UPPER ABDOMEN: No significant abnormality. BONES: No acute abnormality. LINES/TUBES/OTHER: N/A IMPRESSION: Basilar opacities which could reflect scarring/atelectasis versus acute airspace process. Possible pu lmonary artery hypertension.
[2025-06-21] MEDS ORDERED: ENOXAPARIN 100 MG/ML SYR SQ ONE (22:41)
[2025-06-21 22:46] LABS: PT Prothrombin Time 13.1 SECONDS (10-13.0); Protime INR 1.16
[2025-06-21 22:48] LABS: Absolute Lymphocytes (CBC) 2.5 K/uL (0.7-4.9); Hematocrit 45.9 % (36.0-45.0); Hemoglobin 15.6 g/dL (12.0-15.0); MCH 31.8 pg (27.0-35.0); MCHC 34.1 g/dL (32.0-36.0); MCV 93.3 fL (80-100); MPV 9.1 fL (7.6-11.3); Nucleated RBC Absolute Count 0.0 (0-0); Nucleated Red Blood Cells % 0.1 % (0-0); RBC Red Blood Cell Count 4.92 M/uL (3.86-4.86); White Blood Count 10.10 thou/uL (4.3-10.9)
[2025-06-21] MEDS ORDERED: ONDANSETRON 4 MG/2 ML VIAL IV PRN (23:24)
--- NOTE | 2025-06-21 23:30 | P.HP ---
Certification for Inpatient Patient admitted to: Inpatient With expected LOS: >2 Midnights Practitioner: I am a practitioner with admitting privileges, knowledge of patient current condition, hospital course, and medical plan of care. Services: Services provided to patient in accordance with Admission requirements found in Title 42 Section 412.3 of the Code of Federal Regulations Patient History Date of Service: 06/22/25 Reason for admission: Left leg pain History of Present Illness: 65 yrs old Female with past medical history of anxiety, arthritis, hypertension, history of IVC filter placement, MRSA infection, DVT who had a operative procedure in the knee brought to ER with leg pain . She states that she had a "locked knee" in the right knee for greater than 1 day. Patient was seen in [facility] where she "received medicine to sedate her and my knee was straightened". She states they did not put her in a knee immobilizer. She already has orthopedics and is scheduled for surgery next month. She denies any trauma. Patient had a reduction and was placed on immobilizer in ER and is admitted for further management Allergies erythromycin base Allergy (Verified 05/12/15 02:01) Anaphylaxis metoclopramide HCl [From Reglan] Allergy (Verified 05/12/15 02:01) Anaphylaxis Penicillins Allergy (Verified 05/12/15 02:01) Itching Erythromycin Allergy (Uncoded 06/01/15 11:06) Unknown Home medications list reviewed: Yes Home Medications: Naproxen Sodium [Naprelan] 500 mg PO BID PRN 09/26/16 Potassium 99 mg PO DAILY 09/26/16 lisinopriL [Prinivil] 10 mg PO DAILY 09/26/16 - Past Medical/Surgical History Diabetic: No Past Medical History: Reviewed- Non-Contributory -: HTN -: chronic pain/back pain -: Depression -: PVD -: Ostoemyelitis right knee -: Hx Hepatitis C -: GERD -: Osteoarthritis right knee Past Surgical History: Reviewed- Non-Contributory -: Cyst removed from tailbone -: I&D Right Foot and Right Knee -: IVC Filter placed 10/2015 -: Chest tube r/t pneumonia 10/2015 -: Surgical bone debridement and biopsy right knee 2015 - Family History Father -: Heart disease, Hypertension - Social History Smoking Status: Never smoker Alcohol use: No CD- Drugs: No Caffeine use: Yes Review of Systems 10-point ROS is otherwise unremarkable Physical Examination - Vital Signs Temperature: 97.2 F Blood Pressure: 96/48 Pulse: 96 Respirations: 18 Pulse Ox (%): 90 - Physical Exam General: Alert, Mild distress, Obese HEENT: Atraumatic, Normocephalic Neck: Supple Respiratory: Clear to auscultation bilaterally, Normal air movement Capillary refill: <2 Seconds Gastrointestinal: Soft and benign, W/out hepatosplenomegaly Musculoskeletal: No clubbing, Tenderness, Warmth Integumentary: No rashes Neurological: Other (Alert awake nonfocal) Lymphatics: No axilla or inguinal lymphadenopathy - Studies Laboratory Data (last 24 hrs) 06/21/25 06/21/25 21:55 21:55 WBC 10.10 Hgb 15.6 H Hct 45.9 H Plt Count 222 PT 13.1 H INR 1.16 Assessment and Plan - Plan Locked knee right side Reduced under sedation Pain control On knee immobilizer Orthopedic consultation Sepsis Upgraded to ICU Started on IV hydration Started on IV antibiotic Change antibiotic as per sensitivity Will obtain cultures Monitor lactic acid levels New onset A-fib Monitor closely on telemetry Rate controlled Will get an echocardiogram History of hypertension Anxiety Arthritis Pain control Continue home medications when hypotension resolve GI/DVT prophylaxis Advanced directive full code Discharge Plan: Home Plan to discharge in: 48 Hours - Advance Directives Does patient have a Living Will: No Does patient have a Durable POA for Healthcare: No - Code Status/Comfort Care Code Status: Full Code Time Spent Managing Pts Care (In Minutes): 48
--- NOTE | 2025-06-21 23:34 | ER ---
Nurse's Notes [facility] Name: Sindy Peng Age: 65 yrs Sex: Female : 1960 Arrival Date: 06/21/2025 Time: 17:16 Bed 13 Private MD: Diagnosis: Episodic atrial fibrillation, generalized weakness,;Left knee tricompartmental osteoarthritis , locked left knee with moderate to severe acute pain, encounter for left knee manipulation, encounter for moderate sedation for left knee reduction;Methamphetamine abuse;Acute anxiety attack Presentation: 06/21 17:33 Chief complaint: Patient states: L knee "locked" straight about an hour ago. Same thing me1 happened about a week ago. Pain 06/25. Coronavirus screen: Vaccine status: Patient reports being unvaccinated. Ebola Screen: No symptoms or risks identified at this time. Initial Sepsis Screen: Does the patient meet any 2 criteria? No. Patient's initial sepsis screen is negative. Does the patient have a suspected source of infection? No. Patient's initial sepsis screen is negative. Risk Assessment: Do you want to hurt yourself or someone else? Patient reports no desire to harm self or others. Onset of symptoms was June 21, 2025 at 16:30. 17:33 Method Of Arrival: Wheelchair me1 17:33 Acuity: LYDIA 4 me1 Historical: - Allergies: 17:34 metoclopramide HCl; me1 17:34 PENICILLINS; me1 17:34 erythromycin base; me1 - PMHx: 17:34 Anxiety; Arthritis; Hypertension; IVC filter; MRSA; DVT (Unknown); me1 - PSHx: 17:34 Operative procedure on knee; me1 - Immunization history:: Adult Immunizations up to date. - Infectious Disease History:: Denies. - Social history:: Smoking status: Patient/guardian denies using tobacco, but has a distant history of tobacco abuse. Screenin:35 [facility] ED Fall Risk Assessment (Adult) History of falling in the last 3 months, ar8 including since admission No falls in past 3 months (0 pts) Confusion or Disorientation No (0 pts) Intoxicated or Sedated No (0 pts) Impaired Gait Yes (1 pt) Mobility Assist Device Used No (0 pt) Altered Elimination No (0 pt) Score/Fall Risk Level 0 - 2 = Low Risk Oriented to surroundings, Maintained a safe environment. Abuse screen: Denies threats or abuse. Nutritional screening: No deficits noted. Tuberculosis screening: No symptoms or risk factors identified. 18:48 [facility] ED Fall Risk Assessment (Adult) History of falling in the last 3 months, kj2 including since admission No falls in past 3 months (0 pts) Confusion or Disorientation No (0 pts). Assessment: 18:35 Pain: Complains of pain in left knee Pain currently is 10 out of 10 on a pain scale. ar8 18:35 General: Appears uncomfortable, Behavior is calm, cooperative. Neuro: Level of ar8 Consciousness is awake, alert, obeys commands, Oriented to person, place, time, situation. Cardiovascular: Rhythm is sinus rhythm. Respiratory: Airway is patent Respiratory effort is even, unlabored, Respiratory pattern is regular, symmetrical. Musculoskeletal: Reports pain in left knee. 18:47 General: Appears uncomfortable, Behavior is. Pain: Complains of pain in left knee Pain kj2 currently is 10 out of 10 on a pain scale. Neuro: Level of Consciousness is awake, alert, obeys commands, Oriented to person, place, time, situation. Cardiovascular: Patient's skin is warm and dry. Respiratory: Airway is patent Respiratory effort is unlabored. GI: No signs and/or symptoms were reported involving the gastrointestinal system. : No signs and/or symptoms were reported regarding the genitourinary system. 19:45 Reassessment: Patient is alert, oriented x 3, equal unlabored respirations, skin kj2 warm/dry/pink. 20:43 Reassessment: patient asleep. kj2 20:55 Reassessment: patient fully awake, asked for cell phone to call her to inform kj2 him of current status. 21:39 Reassessment: Patient and/or family updated on plan of care and expected duration. Pain kj2 level reassessed. Patient is alert, oriented x 3, equal unlabored respirations, skin warm/dry/pink. 22:30 Reassessment: Patient and/or family updated on plan of care and expected duration. Pain kj2 level reassessed. 23:04 Reassessment: purewick placed. kj2 23:20 Reassessment: patient crying and screaming saying she is hot and is wanting to have al5 everything taken off. patient cold and clammy to the touch. attempted to get oral and axillary temps without success. successfully got a rectal temp of 96.4, notified provider, placed warm blankets on the patient and notified patient and significant other the importance of keeping the warm blankets on her. patient refusing and continuing to cry and scream saying she is hot and wants the blankets off. 23:20 Reassessment: Patient and/or family updated on plan of care and expected duration. Pain al5 level reassessed. patient asleep but arousable, aaox4, respirations even and unlabored. General: Appears distressed, uncomfortable, Behavior is agitated, restless, uncooperative. Pain: Complains of pain in left knee. Neuro: Level of Consciousness is awake, alert, obeys commands, listless, Oriented to person, place, time, situation. Cardiovascular: Capillary refill < 3 seconds Rhythm is atrial fibrillation. Respiratory: Airway is patent Respiratory effort is even, unlabored, Respiratory pattern is regular, symmetrical. GI: No signs and/or symptoms were reported involving the gastrointestinal system. : No signs and/or symptoms were reported regarding the genitourinary system. EENT: No signs and/or symptoms were reported regarding the EENT system. Derm: Skin is intact, is healthy with good turgor, Skin is clammy, Skin is dusky, pale, Skin temperature is cool. Musculoskeletal: Circulation, motion, and sensation intact. Range of motion: limited in left knee Reports pain in left knee. 06/22 01:23 Reassessment: Patient appears in no apparent distress at this time. Patient and/or al5 family updated on plan of care and expected duration. Pain level reassessed. no changes to prior assessment other than what is newly charted, ER provider and hospitalist seen patient and are aware. General: Appears in no apparent distress. comfortable, Behavior is cooperative, drowsy. Neuro: Level of Consciousness is obeys commands, lethargic, Oriented to person, place, time, situation. Vital Signs: 06/21 17:33 BP 131 / 90; Pulse 68; Resp 16; Temp 98.2; Pulse Ox 100% ; Weight 86.18 kg; Height 5 me1 ft. 7 in. ; Pain 10; 18:45 BP 131 / 64; Pulse 71; Resp 22; Pulse Ox 99% on R/A; Pain 10/10; ar8 20:00 BP 125 / 82; Pulse 74; Resp 20; Temp 98.2; Pulse Ox 96% on R/A; kj2 20:20 BP 136 / 106; Pulse 73; Resp 18; Pulse Ox 97% on 2 lpm NC; kj2 20:24 BP 124 / 90; Pulse 68; Resp 18; Pulse Ox 90% on 2 lpm NC; kj2 20:30 BP 112 / 66; Pulse 76; Resp 16; Pulse Ox 98% on 2 lpm NC; kj2 20:35 BP 110 / 79; Pulse 68; Resp 18; Pulse Ox 95% on 2 lpm NC; kj2 20:40 BP 99 / 71; Pulse 76; Resp 18; Pulse Ox 96% on 2 lpm NC; kj2 20:45 BP 109 / 77; Pulse 74; Resp 20; Pulse Ox 95% on 2 lpm NC; kj2 20:50 BP 115 / 75; Pulse 73; Resp 18; Pulse Ox 95% on 2 lpm NC; kj2 20:55 BP 124 / 88; Pulse 70; Resp 20; Pulse Ox 94% on 2 lpm NC; kj2 21:10 BP 117 / 83; Pulse 83; Resp 20; Pulse Ox 95% on 2 lpm NC; kj2 22:00 BP 111 / 84; Pulse 76; Resp 20; Pulse Ox 93% on 2 lpm NC; kj2 23:00 BP 89 / 63; Pulse 63; Resp 20; Pulse Ox 92% on 2 lpm NC; kj2 23:30 BP 110 / 70; Pulse 73; Resp 20; Temp 96.4; Pulse Ox 99% on 4 lpm NC; kj2 06/22 03:21 Temp 96.8(Ca); al5 06/21 17:33 Body Mass Index 29.76 (86.18 kg, 170.18 cm) me1 06/21 17:33 Pain Scale: Adult me1 18:45 Pain Scale: Adult ar8 Anoop Coma Score: 06/21 23:43 Eye Response: spontaneous(4). Motor Response: obeys commands(6). Verbal Response: sp4 oriented(5). Total: 15. ED Course: 17:25 Patient arrived in ED. mr 17:26 Tre Duffy MD is Attending Physician. sp3 17:34 Triage completed. me1 17:34 Arm band placed on Patient placed in waiting room. me1 18:29 XRAY Knee LEFT 3 view In Process Unspecified. EDMS 18:35 Bed in low position. Call light in reach. Side rails up X2. ar8 18:35 Provided Education on: plan of care and medications. ar8 18:35 No provider procedures requiring assistance completed. Inserted saline lock: 22 gauge ar8 in left antecubital area, using aseptic technique. Flushed with 10 mL NS. 18:43 Mirna Church, RN is Primary Nurse. kj2 19:08 Attending Physician role handed off by Tre Duffy MD sp4 19:08 Win Trevino MD is Attending Physician. sp4 21:03 Knee Left 2 View XRAY In Process Unspecified. EDMS 21:56 Lower Extremity Artery Uni Ltd US In Process Unspecified. EDMS 22:20 EKG done, by electrical mechanical technician. reviewed by Win Trevino MD. ts3 22:25 XRAY Chest (1 view) In Process Unspecified. EDMS 23:31 Anderson Alexandre MD is Hospitalizing Provider. sp4 23:40 Inserted saline lock: 22 gauge in right forearm, using aseptic technique. ,using al5 aseptic technique. does not pull back blood Flushed with 10 mL NS. 23:40 Patient admitted, IV remains in place. al5 06/22 00:21 Inserted saline lock: 18 gauge in right EJ, using aseptic technique. ,using aseptic al5 technique. done by Dr. Trevino Blood collected. Flushed with 10 mL NS. 01:18 Gloria cath inserted, using sterile technique, 16 Fr., by nm, balloon inflated, to al5 gravity drainage, clamped. urine specimen collected. Administered Medications: 06/21 18:36 Drug: Ondansetron IVP 4 mg IVP once; over 2 minutes Route: IVP; Site: left antecubital; ar8 19:00 Follow up: Response: No adverse reaction kj2 18:40 Drug: HYDROmorphone IVP 2 mg IVP once Route: IVP; Site: left antecubital; ar8 19:00 Follow up: Response: No adverse reaction; Pain is unchanged, physician notified kj2 20:20 Drug: Etomidate IVP 10 mg IVP once Route: IVP; Site: left antecubital; kj2 06/22 01:26 Follow up: Response: No adverse reaction al5 06/21 20:20 Drug: NS 0.9% IV 1000 ml IV at 1000 ml once; to be given as a bolus over 60 minutes kj2 Route: IV; Rate: 1000 ml; Site: left antecubital; 06/22 01:26 Follow up: Response: No adverse reaction; IV Status: Completed infusion; IV Intake: al5 1000ml ; done prior to this nurse receiving report 06/21 20:38 Not Given (per MD): midazolamor iv 5 mg IVP once kj2 21:39 Drug: Aspirin PO Chewable Tablet 324 mg PO once; 81 mg tablets x 4 Route: PO; kj2 06/22 01:25 Follow up: Response: No adverse reaction al5 06/21 22:31 Drug: morphine IVP or IV 4 mg IVP once over 4 mins Route: IVP; Infused Over: 4 mins; kj2 Site: left antecubital; 06/22 01:26 Follow up: Response: No adverse reaction al5 06/21 22:31 Drug: Ondansetron IVP 4 mg IVP once; over 2 minutes Route: IVP; Site: left antecubital; kj2 06/22 00:46 Follow up: Response: No adverse reaction kj2 06/21 22:31 Drug: Ketorolac IVP 30 mg IVP once Route: IVP; Site: left antecubital; kj2 06/22 00:46 Follow up: Response: No adverse reaction kj2 06/21 22:45 Drug: Enoxaparin Sub-Q 90 mg Sub-Q once Route: Sub-Q; Site: right lower abdomen; vc1 06/22 00:45 Follow up: Response: No adverse reaction kj2 06/21 23:20 Drug: Droperidol IVP 2.5 mg IVP once Route: IVP; Site: left antecubital; al5 06/22 01:25 Follow up: Response: No adverse reaction; RASS: Drowsy (-1) al5 00:22 Drug: NS 0.9% IV 1000 ml IV at 1 bolus Per protocol; to be given as a bolus over 60 al5 minutes Route: IV; Rate: 1 bolus; Site: right jugular; 01:25 Follow up: Response: No adverse reaction; IV Status: Infusion continued upon admission al5 00:22 Not Given (Duplicate Order): [id number] mg IM once al5 00:35 Not Given (Duplicate Order): [id number] mg IM once kj2 Medication: 06/21 18:45 VIS not applicable for this client. ar8 Intake: 06/22 01:26 IV: 1000ml; Total: 1000ml. al5 Outcome: 06/21 23:34 Decision to Hospitalize by Provider. sp4 23:40 Admitted to ER Hold. Please see [facility] for further documentation. al5 23:40 Condition: stable 23:40 Instructed on the need for admit, 06/22 04:04 Patient left the ED. vc1 Signatures: Dispatcher [employer] EDTg [place], Reg Reg mr Tre Duffy MD MD sp3 Yuliya Castellanos, RN RN vc1 Win Trevino MD MD sp4 Deb Paul RN RN me1 Niki Rivers RN RN al5 Mirna Church RN RN kj2 Rose Mary Jack 3 Dontae Kc, RN RN ar8 Corrections: (The following items were deleted from the chart) 06/21 20:43 18:47 General: Appears in no apparent distress. Behavior is cooperative, kj2 kj2 06/22 00:54 06/21 23:40 BP 110 / 70; Pulse 73bpm; Resp 20bpm; Pulse Ox 99% 4 lpm Nasal Cannula; kj2 Temp 96.8F; kj2 06/22 01:25 06/21 23:20 Neuro: Level of Consciousness is alert, obeys commands, lethargic, Oriented al5 to person, place, time, situation, al5
--- NOTE | 2025-06-21 23:34 | EDPHYS ---
Physician Documentation [facility] Name: Sindy Peng Age: 65 yrs Sex: Female : 1960 Arrival Date: 06/21/2025 Time: 17:16 Bed 13 Private MD: ED Physician Win Trevino HPI: 06/21 18:51 This 65 yrs old Female presents to ER via Wheelchair with complaints of Leg Pain. sp3 18:51 65-year-old female with history of hypertension, IVC filter, bilateral knee arthritis sp3 presents with "locked knee" in the right knee for greater than 1 day. Patient was seen in [facility] where she "received medicine to sedate her and my knee was straightened". She states they did not put her in a knee immobilizer. She already has orthopedics and is scheduled for surgery next month. She denies any trauma. ROS otherwise negative.. Historical: - Allergies: 17:34 metoclopramide HCl; me1 17:34 PENICILLINS; me1 17:34 erythromycin base; me1 - PMHx: 17:34 Anxiety; Arthritis; Hypertension; IVC filter; MRSA; DVT (Unknown); me1 - PSHx: 17:34 Operative procedure on knee; me1 - Immunization history:: Adult Immunizations up to date. - Infectious Disease History:: Denies. - Social history:: Smoking status: Patient/guardian denies using tobacco, but has a distant history of tobacco abuse. ROS: 18:52 Constitutional: Negative for fever, chills, and weight loss, Eyes: Negative for injury, sp3 pain, redness, and discharge, Neck: Negative for injury, pain, and swelling, Cardiovascular: Negative for chest pain, palpitations, and edema, Respiratory: Negative for shortness of breath, cough, wheezing, and pleuritic chest pain, Abdomen/GI: Negative for abdominal pain, nausea, vomiting, diarrhea, and constipation, Back: Negative for injury and pain, Skin: Negative for injury, rash, and discoloration, Neuro: Negative for headache, weakness, numbness, tingling, and seizure, Psych: Negative for depression, anxiety, suicide ideation, homicidal ideation, and hallucinations, Allergy/Immunology: Negative for hives, rash, and allergies, Endocrine: Negative for neck swelling, polydipsia, polyuria, polyphagia, and marked weight changes, Hematologic/Lymphatic: Negative for swollen nodes, abnormal bleeding, and unusual bruising, 18:52 All other systems are negative, Exam: 18:52 Constitutional: This is a well developed, well nourished patient who is awake, alert, sp3 and in no acute distress. Head/Face: Normocephalic, atraumatic. Eyes: Pupils equal round and reactive to light, extra-ocular motions intact. Lids and lashes normal. Conjunctiva and sclera are non-icteric and not injected. Cornea within normal limits. Periorbital areas with no swelling, redness, or edema. Chest/axilla: Normal chest wall appearance and motion. Nontender with no deformity. No lesions are appreciated. Cardiovascular: Regular rate and rhythm with a normal S1 and S2. No gallops, murmurs, or rubs. Normal PMI, no JVD. No pulse deficits. Respiratory: Lungs have equal breath sounds bilaterally, clear to auscultation and percussion. No rales, rhonchi or wheezes noted. No increased work of breathing, no retractions or nasal flaring. Abdomen/GI: Soft, non-tender, with normal bowel sounds. No distension or tympany. No guarding or rebound. No evidence of tenderness throughout. Back: No spinal tenderness. No costovertebral tenderness. Full range of motion. Skin: Warm, dry with normal turgor. Normal color with no rashes, no lesions, and no evidence of cellulitis. Neuro: Awake and alert, GCS 15, oriented to person, place, time, and situation. Cranial nerves II-XII grossly intact. Motor strength 5/5 in all extremities. Sensory grossly intact. Cerebellar exam normal. Normal gait. 18:52 Musculoskeletal/extremity: Right knee flexed at 30 degrees. Distal neurovascular exam is normal. No drawer laxity and range of motion severely limited.. 23:43 ECG was reviewed by the Attending Physician. EKG at 2208 sinus arrhythmia at the rate sp4 of 76 with frequent multifocal PVCs Vital Signs: 17:33 BP 131 / 90; Pulse 68; Resp 16; Temp 98.2; Pulse Ox 100% ; Weight 86.18 kg; Height 5 me1 ft. 7 in. ; Pain 10/10; 18:45 BP 131 / 64; Pulse 71; Resp 22; Pulse Ox 99% on R/A; Pain 10/10; ar8 20:00 BP 125 / 82; Pulse 74; Resp 20; Temp 98.2; Pulse Ox 96% on R/A; kj2 20:20 BP 136 / 106; Pulse 73; Resp 18; Pulse Ox 97% on 2 lpm NC; kj2 20:24 BP 124 / 90; Pulse 68; Resp 18; Pulse Ox 90% on 2 lpm NC; kj2 20:30 BP 112 / 66; Pulse 76; Resp 16; Pulse Ox 98% on 2 lpm NC; kj2 20:35 BP 110 / 79; Pulse 68; Resp 18; Pulse Ox 95% on 2 lpm NC; kj2 20:40 BP 99 / 71; Pulse 76; Resp 18; Pulse Ox 96% on 2 lpm NC; kj2 20:45 BP 109 / 77; Pulse 74; Resp 20; Pulse Ox 95% on 2 lpm NC; kj2 20:50 BP 115 / 75; Pulse 73; Resp 18; Pulse Ox 95% on 2 lpm NC; kj2 20:55 BP 124 / 88; Pulse 70; Resp 20; Pulse Ox 94% on 2 lpm NC; kj2 21:10 BP 117 / 83; Pulse 83; Resp 20; Pulse Ox 95% on 2 lpm NC; kj2 22:00 BP 111 / 84; Pulse 76; Resp 20; Pulse Ox 93% on 2 lpm NC; kj2 23:00 BP 89 / 63; Pulse 63; Resp 20; Pulse Ox 92% on 2 lpm NC; kj2 23:30 BP 110 / 70; Pulse 73; Resp 20; Temp 96.4; Pulse Ox 99% on 4 lpm NC; kj2 06/22 03:21 Temp 96.8(Ca); al5 06/21 17:33 Body Mass Index 29.76 (86.18 kg, 170.18 cm) me1 06/21 17:33 Pain Scale: Adult me1 18:45 Pain Scale: Adult ar8 [place] Score: 06/21 23:43 Eye Response: spontaneous(4). Motor Response: obeys commands(6). Verbal Response: sp4 oriented(5). Total: 15. Procedures: 23:34 Reduction: of the left knee -left knee locks in a hip flexed position, left knee was sp4 reduced with moderate sedation into a straight position, using traction, manipulation, Left knee extension, Immobilized with Knee immobilizer, prefabricated Velcro knee immobilizer. Patient tolerated well. Post reduction film - reveals improved alignment. 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 Left knee immobilizer was applied. Total intra sedation time 36 minutes. Patient woke up without complications. After sedation instructions were provided to the patient.. MDM: 17:34 Medical Screening Exam initiated sp3 18:53 Data reviewed: vital signs, nurses notes, radiologic studies. ED course: X-ray of the sp3 right knee demonstrates virtually 0 joint space. No fracture noted. Initial attempt to straighten knee performed using 2 mg of Dilaudid IV and 4 mg of Zofran. Analgesia was achieved however patient did not tolerate straightening. Patient will need to be signed out to nighttime physician for full procedural anesthesia/sedation and subsequent reduction and disposition.. 18:54 Transition of care: After a detail discussion of the patient's case, care is sp3 transferred to Win Trevino MD. 23:31 Differential diagnosis: dislocation, open fracture, closed fracture, contusion, sp4 abrasion, tendonitis. Consideration of Admission/Observation Patient was admitted/placed on observation. Escalation of care including admission/observation considered. Management of patient was discussed with the following: Hospitalist: Baldomero ALCARAZ . 23:39 ED course: HISTORY: leg pain COMPARISON: None TECHNIQUE: Multiplanar grayscale and sp4 color Doppler images were obtained and a left lower extremity arterial ultrasound. Spectral analysis of the Doppler waveforms were performed. Arterial Doppler left lower extremity. FINDINGS: Left lower extremity: Common femoral artery: Triphasic Superficial femoral artery: Triphasic Popliteal artery: Triphasic Posterior tibial artery: Triphasic Dorsalis pedis artery: Triphasic IMPRESSION: No significant arterial abnormality of the left lower extremity. ED course: COMPARISON: 08/25/2015 FINDINGS: LUNGS/PLEURA: Linear opacities in lung bases may reflect combination of scarring and subsegmental atelectasis. CARDIAC/MEDIASTINUM: The pulmonary arteries appear enlarged. This could indicate pulmonary artery hypertension. Borderline cardiomegaly. UPPER ABDOMEN: No significant abnormality. BONES: No acute abnormality. LINES/TUBES/OTHER: N/A IMPRESSION: Basilar opacities which could reflect scarring/atelectasis versus acute airspace process. Possible pulmonary artery hypertension. . ED course: Left knee x-ray after straightening in the reduction - INDICATION: after reduction COMPARISON: 4 hours prior IMPRESSION: Postreduction radiographs. The alignment of the knee appear similar. No fracture identified. . ED course: INDICATION: PAIN left knee is stuck in a hyperflexed position COMPARISON: None FINDINGS: No acute fracture. No significant knee effusion. Advanced lateral compartment degenerative changes with [id number] contact, large marginal osteophytes, and subchondral sclerosis. The medial compartment is probably moderately narrowed. Moderate patellofemoral compartment spurring. Other: N/A IMPRESSION: No acute osseous abnormality involving the imaged knee.. 23:42 ED course: Patient's left knee was reduced with moderate sedation. Left knee sp4 immobilizer was applied. At the time of sedation we noticed patient atrial fibrillation that is however rate controlled. We recommended for the patient to be admitted for further assessment and consultation with cardiology. # Also had left lower extremity arterial Doppler to make certain that arterial flow to the left foot is not impaired after reduction. Patient then developed episode of hypotension and had to be given IV fluid bolus. Critical care billed for hypotensive episode. Patient at this time hemodynamically stable for admission Dr. Alexandre consulted for admission. 06/21 21:28 Order name: Basic Metabolic Panel; Complete Time: 02:38 sp4 06/21 21:28 Order name: CBC with Diff; Complete Time: 23:06 sp4 06/21 21:28 Order name: LFT's; Complete Time: 02:38 sp4 06/21 21:28 Order name: Magnesium; Complete Time: 02:38 sp4 06/21 21:28 Order name: NT PRO-BNP; Complete Time: 02:38 sp4 06/21 21:28 Order name: PT-INR; Complete Time: 23:06 sp4 06/21 21:28 Order name: Troponin HS; Complete Time: 02:38 sp4 06/21 23:30 Order name: CBC with Automated Diff EDMS 06/21 23:30 Order name: CBC with Automated Diff EDMS 06/21 23:30 Order name: Comprehensive Metabolic Panel EDMS 06/21 23:30 Order name: Comprehensive Metabolic Panel EDMS 06/22 00:22 Order name: Lactate w/ 2H reflex if indic. al5 06/22 00:22 Order name: Blood Culture Adult (2) al5 06/22 00:32 Order name: Urine Drug Screen sp4 06/22 01:16 Order name: Lactate w/ 2H reflex if indic.; Complete Time: 02:38 EDMS 06/22 02:49 Order name: Urine Drug Screen; Complete Time: 03:08 EDMS 06/21 17:35 Order name: XRAY Knee LEFT 3 view; Complete Time: 23:06 sp3 06/21 20:23 Order name: Knee Left 2 View XRAY; Complete Time: 23:06 sp4 06/21 21:28 Order name: XRAY Chest (1 view); Complete Time: 23:06 sp4 06/21 21:29 Order name: Lower Extremity Artery Uni Ltd US; Complete Time: 23:06 sp4 06/21 18:25 Order name: IV Saline Lock; Complete Time: 18:47 sp3 06/21 18:48 Order name: Monitor; Complete Time: 20:38 sp3 06/21 18:48 Order name: NPO; Complete Time: 20:38 sp3 06/21 18:48 Order name: Pulse Ox Monitoring; Complete Time: 20:51 sp3 06/21 19:09 Order name: Moderate Sedation; Complete Time: 20:51 sp4 06/21 19:10 Order name: Knee Immobilizer: Left knee immobilizer application by MD; Complete Time: sp4 20:38 06/21 21:28 Order name: Cardiac monitoring; Complete Time: 21:41 sp4 06/21 21:28 Order name: EKG - Nurse/Tech; Complete Time: 22:20 sp4 06/21 21:28 Order name: Labs collected and sent; Complete Time: 22:39 sp4 06/21 21:28 Order name: O2 Per Protocol; Complete Time: 21:41 sp4 06/22 01:18 Order name: Gloria; Complete Time: 01:18 al5 EC:08 Rate is 76 beats/min. Rhythm is irregularly irregular, Sinus arrythmia with Multifocal sp4 PVCs. QRS [place] is Normal. [place] interval is normal. QRS interval is normal. QT interval is normal. No Q waves. T waves are Normal. No ST changes noted. Clinical impression: No evidence of ischemia. Interpreted by me. Reviewed by me. Administered Medications: 18:36 Drug: Ondansetron IVP 4 mg IVP once; over 2 minutes Route: IVP; Site: left antecubital; ar8 19:00 Follow up: Response: No adverse reaction kj2 18:40 Drug: HYDROmorphone IVP 2 mg IVP once Route: IVP; Site: left antecubital; ar8 19:00 Follow up: Response: No adverse reaction; Pain is unchanged, physician notified kj2 20:20 Drug: Etomidate IVP 10 mg IVP once Route: IVP; Site: left antecubital; kj2 06/22 01:26 Follow up: Response: No adverse reaction al5 06/21 20:20 Drug: NS 0.9% IV 1000 ml IV at 1000 ml once; to be given as a bolus over 60 minutes kj2 Route: IV; Rate: 1000 ml; Site: left antecubital; 06/22 01:26 Follow up: Response: No adverse reaction; IV Status: Completed infusion; IV Intake: al5 1000ml ; done prior to this nurse receiving report 06/21 20:38 Not Given (per MD): midazolamor iv 5 mg IVP once kj2 21:39 Drug: Aspirin PO Chewable Tablet 324 mg PO once; 81 mg tablets x 4 Route: PO; kj2 06/22 01:25 Follow up: Response: No adverse reaction al5 06/21 22:31 Drug: morphine IVP or IV 4 mg IVP once over 4 mins Route: IVP; Infused Over: 4 mins; kj2 Site: left antecubital; 06/22 01:26 Follow up: Response: No adverse reaction al5 06/21 22:31 Drug: Ondansetron IVP 4 mg IVP once; over 2 minutes Route: IVP; Site: left antecubital; kj2 06/22 00:46 Follow up: Response: No adverse reaction kj2 06/21 22:31 Drug: Ketorolac IVP 30 mg IVP once Route: IVP; Site: left antecubital; kj2 06/22 00:46 Follow up: Response: No adverse reaction kj2 06/21 22:45 Drug: Enoxaparin Sub-Q 90 mg Sub-Q once Route: Sub-Q; Site: right lower abdomen; vc1 06/22 00:45 Follow up: Response: No adverse reaction kj2 06/21 23:20 Drug: Droperidol IVP 2.5 mg IVP once Route: IVP; Site: left antecubital; al5 06/22 01:25 Follow up: Response: No adverse reaction; RASS: Drowsy (-1) al5 00:22 Drug: NS 0.9% IV 1000 ml IV at 1 bolus Per protocol; to be given as a bolus over 60 al5 minutes Route: IV; Rate: 1 bolus; Site: right jugular; 01:25 Follow up: Response: No adverse reaction; IV Status: Infusion continued upon admission al5 00:22 Not Given (Duplicate Order): [id number] mg IM once al5 00:35 Not Given (Duplicate Order): [id number] mg IM once kj2 Disposition: 22:24 Chart complete. sp4 Disposition Summary: 06/21/25 23:34 Hospitalization Ordered Notes: Hospitalization Status: Inpatient Admission sp4 Provider: Anderson Alexandre sp4 Condition: Stable sp4 Problem: new sp4 Symptoms: have improved sp4 Bed/Room Type: Standard sp4 Location: Intensive Care Unit(06/22/25 03:29) ha1 Room Assignment: 8-(06/22/25 03:29) ha1 Diagnosis - Episodic atrial fibrillation, generalized weakness, sp4 - Left knee tricompartmental osteoarthritis , locked left knee with moderate to sp4 severe acute pain, encounter for left knee manipulation, encounter for moderate sedation for left knee reduction - Methamphetamine abuse sp4 - Acute anxiety attack sp4 Forms: - Medication Reconciliation Form sp4 - SBAR form sp4 - Leadership Thank You Letter sp4 Critical care time excluding procedures: 06/21 23:42 Critical care time: Bedside Care: 36 minutes, Consultation: 12 minutes, Family sp4 Intervention: 12 minutes. Total time: 60 minutes Signatures: Dispatcher [employer] EDTre Batista MD MD sp3 Yuliya Castellanos, RN RN vc1 Heydi Avery, RN RN ha1 Win Trevino MD MD sp4 Deb Paul, RN RN me1 Niki Rivers RN RN al5 Mirna Church RN RN kj2 Dontae Kc, RN RN ar8 Corrections: (The following items were deleted from the chart) 20:23 20:23 Knee Left 2 View+RAD.RAD.BRZ ordered. EDMS EDMS 21:28 21:28 BASIC METABOLIC PANEL+C.LAB.BRZ ordered. EDMS EDMS 21:28 21:28 CBC+H.LAB.BRZ ordered. EDMS EDMS 21:28 21:28 HEPATIC FUNCTION+C.LAB.BRZ ordered. EDMS EDMS 21:28 21:28 MAGNESIUM+C.LAB.BRZ ordered. EDMS EDMS 21:28 21:28 PROBNP+C.LAB.BRZ ordered. EDMS EDMS 21:28 21:28 PROTIME (+INR)+COAG.LAB.BRZ ordered. EDMS EDMS 21:28 21:28 Troponin High Sensitivity+C.LAB.BRZ ordered. EDMS EDMS 21:29 21:29 Chest Single View+RAD.RAD.BRZ ordered. EDMS EDMS 23:44 23:34 sp4 al5 06/22 00:33 10 23:34 Telemetry/MedSurg (Inpatient) sp4 al5 06/22 00:33 06/21 23:44 430 al5 al5 06/22 03:29 00:33 [facility] ER HOLD al5 ha1 03:29 00:33 ERHOLD- al5 ha1
[2025-06-21] MEDS ORDERED: ZIPRASIDONE MESYLA 20 MG/VIAL IM ONE (23:58)
[2025-06-21] MEDS ORDERED: WATER FOR INJ,STERILE 10 ML ONE (23:58)
[2025-06-22 01:09] LABS: ALT/SGPT 37.0 U/L (13-56); AST/SGOT 29.0 U/L (15-37); Albumin 3.1 g/dL (3.4-5.0); Albumin/Globulin Ratio 0.9 (1.1-1.8); Alkaline Phosphatase 98.0 U/L (45-117); Anion Gap 10.7 mEq/L (5.0-15.0); BUN Blood Urea Nitrogen 32.0 mg/dL (7-18); Bilirubin Indirect, Calculated 0.5 mg/dL (0.2-0.8); Globulin 3.3 g/dL (2.3-3.5); Glucose Level 116.0 mg/dL (74-106); Magnesium 2.1 mg/dL (1.6-2.4); NT PRO-BNP 4788.0 pg/mL (<125); Potassium 3.7 mEq/L (3.5-5.1); Troponin High Sensitivity 31.0 pg/mL (<58.9)
[2025-06-22] MEDS ORDERED: PIPERACIL/TAZO 3.375 GM VIAL IV ONE (01:33)
[2025-06-22] MEDS ORDERED: NA CHLORIDE 0.9% 100 ML ONE (01:33)
[2025-06-22] MEDS ORDERED: NA CHLORIDE 0.9% 1,000 ML ONE (01:35)
[2025-06-22] MEDS: PIPER TAZO 3.375 GM in NA CHLORIDE 0.9% 100 ML IV SCH (01:40)
[2025-06-22 01:46] VITALS: BMI 29.7
[2025-06-22] MEDS ORDERED: VANCOMYCIN 1 GM in NA CHLORIDE 0.9% 250 ML IVPB SCH (02:00)
[2025-06-22] MEDS: NA CHLORIDE 0.9% 1,000 ML IV SCH (02:00)
[2025-06-22 02:49] LABS: METHAMPHETAM POSITIVE (NEGATIVE); THC Cannibis POSITIVE (NEGATIVE)
[2025-06-22] MEDS: VANCOMYCIN 1.5 GM in NA CHLORIDE 0.9% 500 ML IVPB SCH (05:00)
[2025-06-22] MEDS: NA CHLORIDE 0.9% 500 ML ONE (05:15)
[2025-06-22] MEDS: VANCOMYCIN 500 MG/VIAL ONE (05:16)
[2025-06-22] MEDS: VANCOMYCIN 1 GM/VIAL ONE (05:16)
[2025-06-22] MEDS: ACETAMINOPHEN 325 MG TABLET PO PRN (05:53)
--- NOTE | 2025-06-22 06:14 | P.PN ---
Subjective Date of Service: 06/22/25 Chief Complaint: Left leg pain Subjective: No new changes Review of Systems is unable to be obtained Physical Examination - Vital Signs Temperature: 96.8 F Blood Pressure: 101/56 Pulse: 74 Respirations: 18 Pulse Ox (%): 96 - Physical Exam General: Alert HEENT: Atraumatic, Normocephalic Neck: Supple Respiratory: Clear to auscultation bilaterally, Normal air movement Cardiovascular: Regular rate/rhythm, Normal S1 S2 Capillary refill: <2 Seconds Gastrointestinal: Soft and benign, W/out hepatosplenomegaly Musculoskeletal: No clubbing Integumentary: No rashes Neurological: Other (Drowsy but arousable ) Lymphatics: No axilla or inguinal lymphadenopathy - Studies Laboratory Data (last 24 hrs) 06/21/25 06/21/25 21:55 21:55 WBC 10.10 Hgb 15.6 H Hct 45.9 H Plt Count 222 PT 13.1 H INR 1.16 Assessment And Plan - Plan Locked knee right side Reduced under sedation Pain control On knee immobilizer Orthopedic consultation Sepsis Upgraded to ICU Started on IV hydration Started on IV antibiotic Change antibiotic as per sensitivity Will obtain cultures Monitor lactic acid levels New onset A-fib Monitor closely on telemetry Rate controlled Will get an echocardiogram History of hypertension Anxiety Arthritis Pain control Continue home medications when hypotension resolve GI/DVT prophylaxis Advanced directive full code Discharge Plan: Home Plan to discharge in: 48 Hours - Code Status/Comfort Care Code Status: Full Code Time Spent Managing PTS Care (In Minutes): 48
[2025-06-22 06:54] LABS: ALT/SGPT 37.0 U/L (13-56); AST/SGOT 36.0 U/L (15-37); Albumin 3.1 g/dL (3.4-5.0); Albumin/Globulin Ratio 0.9 (1.1-1.8); Alkaline Phosphatase 88.0 U/L (45-117); Anion Gap 11.3 mEq/L (5.0-15.0); BUN Blood Urea Nitrogen 34.0 mg/dL (7-18); Globulin 3.4 g/dL (2.3-3.5); Glucose Level 88.0 mg/dL (74-106); Potassium 4.3 mEq/L (3.5-5.1)
[2025-06-22 07:37] LABS: Absolute Lymphocytes (CBC) 2.3 K/uL (0.7-4.9); Hematocrit 45.4 % (36.0-45.0); Hemoglobin 15.1 g/dL (12.0-15.0); MCH 31.5 pg (27.0-35.0); MCHC 33.2 g/dL (32.0-36.0); MCV 95.0 fL (80-100); MPV 9.8 fL (7.6-11.3); Nucleated RBC Absolute Count 0.0 (0-0); Nucleated Red Blood Cells % 0.3 % (0-0); RBC Red Blood Cell Count 4.78 M/uL (3.86-4.86); White Blood Count 9.20 thou/uL (4.3-10.9)
[2025-06-22] MEDS: ENOXAPARIN 40 MG/0.4 ML SQ SCH (08:00)
[2025-06-22] MEDS: MORPHINE 2 MG/ML SYR IV PRN (10:51)
[2025-06-22 16:59] VITALS: O2SAT 94
[2025-06-22 19:04] VITALS: BP 101/56; TEMP 96.8
== END 2025-06-22 19:00 | disposition left against medical advice (07) | DRG 872 ==
LOC: ER 17:16 → ERHOLD 23:24 → 4TH 06-22 00:07 → ERHOLD 06-22 00:21 → 3RD-ICU 06-22 03:37
PROVIDERS: ADMIT Family Medicine; ATTEND Hospitalist
PROC: 0T9B70Z Drainage of Bladder with Drainage Device, Via Natural or Artificial Opening (ICD-10-PCS; principal; 2025-06-22)
DX: A41.9 Sepsis, unspecified organism (principal); I48.91 Unspecified atrial fibrillation; I10 Essential (primary) hypertension; F41.9 Anxiety disorder, unspecified; M17.11 Unilateral primary osteoarthritis, right knee; M17.12 Unilateral primary osteoarthritis, left knee; F15.10 Other stimulant abuse, uncomplicated; M23.92 Unspecified internal derangement of left knee; Z88.0 Allergy status to penicillin; Z88.1 Allergy status to other antibiotic agents; Z86.14 Personal history of Methicillin resistant Staphylococcus aureus infection; Z79.899 Other long term (current) drug therapy; Z86.718 Personal history of other venous thrombosis and embolism
CPT/HCPCS: 36415; 51702; 71045; 80048; 80053; 80076; 80307; 83605; 83735; 83880; 84484; 85025; 85610; 87040; 87205; 93005; 93926; 94760; 96361; 96372; 96374; 96375; 99285; J1171; J1650; J1790; J1885; J2250; J2270; J2405; J2543; J3373; J3486; J7030; J7040